=== PATIENT | male | born 1950 | race Caucasian/White ===

== ENCOUNTER 2021-07-13 14:53 | Emergency (ER) | payer OTHER, SELFPAY ==
[2021-07-13 15:00] VITALS: BP 108/62; PULSE 99; RESP 16; TEMP 36.3; O2SAT 97
--- NOTE | 2021-07-13 15:15 | DI.RAD_ITS ---
Exam(s) XR RIBS LT W PA LAT CHEST CLINICAL HISTORY L hilary-lat pain after fall. COMPARISON: No exams were available for comparison TECHNIQUE:: PA and lateral views of the chest and four views of the left ribs were performed. FINDINGS: LUNGS: Clear. No pleural abnormality seen. HEART: Normal. MEDIASTINUM: Normal. BONES: Old fracture deformities of the left 8th and 10th ribs. No acute displaced rib fracture is se en. No compression fractures are seen in the thoracic spine. Flowing osteophytes. No bony destruct twyla lesion is seen. OTHER FINDINGS: Surgical clips in region of stomach and left upper quadrant.. IMPRESSION: 1. Old left 8th and 9th rib fractures. No acute fractures.. 2. No acute pulmonary findings.
--- NOTE | 2021-07-13 15:20 | ED.GENADUL_ITS ---
Discharge Plan Disposition Patient Disposition: HOME Condition: Improving Discharge Details Clinical Impression: Contusion of rib on left side Primary Care Provider: Unknown,Unknown ED Provider: Mehdi Melendez Home Meds and New Rx's Prescriptions: Continued albuterol sulfate 90 mcg/actuation Hfa Aerosol Inhaler 1 puff INHALATION TID PRN Eliquis 5 mg Tablet 5 mg PO BID metformin 1,000 mg Tablet 1,000 mg PO BID acetaminophen 500 mg Tablet 500 mg PO BID PRN lisinopril 10 mg Tablet 10 mg PO DAILY escitalopram oxalate 20 mg Tablet 20 mg PO DAILY dulaglutide 1.5 mg/0.5 mL Pen Injector 1.5 mg SUBCUT DIRECTED Rx Instructions: Q Discharge Instructions Instructions: Rib Contusion (ED) Additional Instructions: Your chest and rib x-rays revealed left lower rib fractures at the eighth and 10th level. These appear to be nonacute. Continue your routine medications including Tylenol as needed for pain. Return to the ER for any acute concerns. Medical Decision Making This is a 70-year-old male from local [facility]al [facility]. He states he tripped over his shoelaces caught and fell forward landing on his left shoulder and chest. He did not have a loss of consciousness. Denies head/neck/back pain. He presents for evaluation of left anterior chest wall pain. No extremity injury. Patient is anticoagulated for history of DVT. On my exam is area of injuries isolated to the left anterolateral chest wall. Patient referred for chest x-ray with rib views. This reveals nonacute eighth and 10th rib fractures. Discussed with patient and he is stable for discharge from the ER. HPI General Mode of arrival: ambulatory . Date/Time Provider Initiated Documentation: 07/13/21 14:54 . Limitations to Documentation: no limitations . Information obtained by: patient . History of Present Illness 70 year old M presents to the emergency department with the chief complaint of Trip and fall with resultant left chest wall pain, described as moderate, Quality is described as constant, and is localized to the chest and left. Patient reports no radiation. Patient started experiencing this hour(s) and it has been constant. No relieving factors improve symptom(s), Movement worsens symptoms . Patient notes denies cough, headaches, shortness of breath and syncope. Patient did receive the following treatments prior to arrival, none Related Data Home Medications Medication Instructions Recorded Confirmed acetaminophen 500 mg tablet 500 mg PO BID PRN 07/13/21 07/13/21 albuterol sulfate 90 mcg/actuation 1 puff inhalation TID PRN 07/13/21 07/13/21 aerosol inhaler apixaban 5 mg tablet (Eliquis) 5 mg PO BID 07/13/21 07/13/21 dulaglutide 1.5 mg/0.5 mL 1.5 mg subcut DIRECTED 07/13/21 07/13/21 subcutaneous pen injector escitalopram oxalate 20 mg tablet 20 mg PO DAILY 07/13/21 07/13/21 lisinopril 10 mg tablet 10 mg PO DAILY 07/13/21 07/13/21 metformin 1,000 mg tablet 1,000 mg PO BID 07/13/21 07/13/21 Allergies Allergy/AdvReac Type Severity Reaction Status Date / Time No Known Allergies Allergy Unverified 07/13/21 15:05 General Stated Complaint: Chest/Rib BERRY: 4 Review of Systems Narrative: No loss of consciousness. Denies headache. No neck or back pain. Left anterior chest pain that is worse with movement. Denies abdominal pain. PFSH All Active Problems (Updated 07/13/21 @ 16:13 by Mehdi Melendez MD) Contusion of rib on left side (Acute) Social History Smoking/Tobacco Use Status: Never Smoking risk assessment performed?: Yes Exam Narrative Exam Narrative: GEN: awake, alert, oriented 3. Pleasant, well groomed, interactive. HEAD: Normocephalic, atraumatic ENT: Mucous membranes moist, oropharynx unremarkable, External ear exam unremarkable EYES: PERRL, EOMI NECK: Full ROM, no RUSH, no menigismus CHEST/RESP: Left anterolateral chest wall tenderness to palpation below the nipple line, no crepitus, clear to auscultation bilateral, no wheeze/rhonchi/rales CARDIOVASCULAR: RRR, no murmur, rub adan. 2+ Rad pulse bilateral ABDOMEN: Soft, nontender, no mass. +Bowel sounds EXT: Full ROM, no edema, no rash Neuro: Grossly normal neurologic exam, conversant, interactive. Psych: Speech fluent, thoughts congruent, affect normal Course Vital Signs Vital signs: Vital Signs Temperature 36.3 C L 07/13/21 15:00 Pulse 99 H 07/13/21 15:00 Respiratory Rate 16 07/13/21 15:00 Blood Pressure 108/62 07/13/21 15:00 Pulse Oximetry 97 07/13/21 15:00 Temperature 36.3 C L 07/13/21 15:00 Temperature Source Skin 07/13/21 15:00 Pulse 99 H 07/13/21 15:00 Respiratory Rate 16 07/13/21 15:00 Respiratory Effort 07/13/21 15:11 Respiratory Depth Shallow 07/13/21 15:11 Respiratory Pattern Normal 07/13/21 15:11 Blood Pressure 108/62 07/13/21 15:00 Blood Pressure Position Sitting 07/13/21 15:00 Pulse Oximetry 97 07/13/21 15:00 Oxygen Delivery Method Room Air 07/13/21 15:00 Oxygen Flow Rate 0 07/13/21 15:00 Pain Level 4 07/13/21 15:11 Comment denies ice or heat to injured area 07/13/21 15:00
--- NOTE | 2021-07-13 16:12 | DI.VRAD_ITS ---
PROCEDURE INFORMATION: Exam: XR Left Ribs Exam date and time: 07/13/2021 3:51 PM Age: 70 years old Clinical indication: Other: L- anterior lat pain after fall TECHNIQUE: Imaging protocol: XR Left ribs. Views: 2 views. COMPARISON: No relevant prior studies available. FINDINGS: Bones/joints: There appears to be a nonacute lower left rib fractures at the T8 and 10th rib level. Intraperitoneal space: There are surgical clips in the left upper quadrant. It appears the patient is status post anterior abdominal wall hernia repair. Soft tissues: See Intraperitoneal space finding. IMPRESSION: Apparent nonacute 8th and 10th rib fractures. No definite acute fracture seen. PROCEDURE INFORMATION: Exam: XR Chest Exam date and time: 07/13/2021 3:51 PM Age: 70 years old Clinical indication: Other: L- anterior lat pain after fall TECHNIQUE: Imaging protocol: XR of the chest. Views: 2 views. COMPARISON: No relevant prior studies available. FINDINGS: Lungs: Unremarkable. No consolidation. Pleural spaces: Unremarkable. No pleural effusion. No pneumothorax. Heart/Mediastinum: Unremarkable. No cardiomegaly. Bones/joints: Unremarkable. IMPRESSION: No evidence for acute abnormality in the chest. Dictated and Authenticated by: Betty Pineda MD. Ordering:TERESA Harding MD
== END 2021-07-13 16:28 | disposition home or self-care (01) ==
PROVIDERS: Emergency Provider Emergency Medicine
DX: S20.212A Contusion of left front wall of thorax, initial encounter (principal); W01.0XXA Fall on same level from slipping, tripping and stumbling without subsequent striking against object, initial encounter
CPT/HCPCS: 99283; 71046; 71100

== ENCOUNTER 2024-06-24 11:30 | Observation (INO) | payer OTHER, SELFPAY ==
[2024-06-24] VITALS (125 sets, daily range): BP systolic 84–139; BP diastolic 50–74; PULSE 101–136; RESP 11–27; TEMP 36.8–38.3; O2SAT 94–100
--- NOTE | 2024-06-24 11:30 | RT.EKG_ITS ---
APPROVED REPORT Exam: Resting ECG Reason for Exam: sob Patient Location: E HR:115 bpm ECG Measurements Heart Rate 115 AXIS HI 132 P 0 QRSd 76 QRS 0 QT 314 T 23 QTc 434 Conclusion Sinus tachycardia...rate> 99 No Occlusion HI
--- NOTE | 2024-06-24 11:30 | DI.CT_ITS ---
Exam(s) CT HEAD WO EXAM: CT HEAD WO CLINICAL HISTORY: head strike. TECHNIQUE: Imaging Protocol: Axial computed tomography images with coronal and sagittal reformatted images were created and reviewed COMPARISON: No exams were available for comparison FINDINGS: Ventricles and Extra axial spaces: Normal in size and morphology for the patient's age. Hemorrhage: None. Cerebral parenchyma: No evidence of acute infarct or mass. Mild atrophy. Midline shift: None. Brainstem/Cerebellum: Normal. Bones: No skull fracture fixation plate in the anterior wall the Sherman maxillary sinus and superior lef t orbit. Old nasal fractures. No acute fractures are identified. Visualized Paranasal sinuses:Minimal ethmoid and maxillary sinus mucosal thickening. Mastoids: Clear. Soft Tissues: Calcification in the high left scalp. ORBITS: Unremarkable. PITUITARY: Not enlarged. IMPRESSION: No acute intracranial process. RADIATION DOSE DELIVERED: Total DLP DATA REPOSITORY: All CT scans at this facility are submitted to the National Radiology Data Registry (NRDR) Dose Index Registry (DIR) with the [employer] (ACR). RADIATION OPTIMIZATION: All CT scans at this facility use at least one of these dose optimization te chniques: automated exposure control; mA and/or kV adjustment per patient size (includes targeted exa ms where dose is matched to clinical indication); or iterative reconstruction.
--- NOTE | 2024-06-24 11:31 | W.ED.GENAD ---
Discharge Plan Discharge Details Chief Complaint: [id number] Clinical Impression: Symptomatic anemia, Acute blood loss anemia (ABLA) Primary Care Provider: Unknown,Unknown ED Provider: José Manuel Godinez [place] Meds and New Rx's Prescriptions: No Action naproxen 500 mg tablet 500 mg PO BID PRN metformin 1,000 mg Tablet 1,000 mg PO BID acetaminophen 500 mg Tablet 500 mg PO BID PRN lisinopril 10 mg Tablet 10 mg PO DAILY escitalopram oxalate 20 mg Tablet 20 mg PO DAILY dulaglutide 1.5 mg/0.5 mL Pen Injector 1.5 mg SUBCUT DIRECTED Rx Instructions: Q HPI General Date/Time Provider Initiated Documentation: 06/24/24 11:31. HPI Narrative: MDM This is a pale tachycardic initially normotensive 73-year-old male prior history of GI bleed with likely recurrent GI bleed in setting of anemia and syncope for which patient require hospitalization. Patient has been taking ibuprofen 600 mg twice a day. I am not concerned for variceal bleed so we will defer octreotide. Patient is not cirrhotic so we will defer ceftriaxone. After written consent to transfuse patient 2 L as his hemoglobin went from 7.9-6.9 following approximate 1 L of IV fluids. I spoke with Dr. Calderon from general surgery to make him aware. Patient does not require an emergent upper endoscopy. His CT scan does show that he has small amount of high density material at the GE junction which could represent upper GI bleed. His CT chest was negative for PE. He had no signs of intracranial hemorrhage on CT scan. He was initially hyperkalemic with serum potassium of 5.7 which improved with treatment using 5 units IV insulin, D10 bolus, and 2 g calcium gluconate. Patient is persistently tachycardic which I suspect is secondary to volume loss. Considered sepsis however the absence of fevers I did not treat empirically with IV antibiotics. No chest pain to suggest pneumonia and no cough. Patient does have diverticular disease in his abdomen but no signs of diverticulitis. No URI symptoms to suggest COVID or influenza. Concerning the patient's left index finger spider bite I see no signs of infection which would benefit from antibiotics. I spoke with Dr. Regalado who graciously agreed to accept the patient for hospitalization. No indication for CT cervical spine based on Nexus criteria. Per Nexus criteria, cervical CT not obtained. The patient had no c-spine midline tenderness, no evidence of intoxication, was AAOx3, had no focal neurological deficits, and no painful distracting injuries. HPI This is a 73-year-old male arrived emergency department in police custody from the skilled nursing in setting of syncopal episode. Patient reports that he has had black stools for the past several days. He notes that he remotely had a colonoscopy and endoscopy for a GI bleed but he cannot recall when or where this occurred. He said that he was previously on apixaban and warfarin in setting of atrial fibrillation but that he is no longer taking these medications. He denies chest pain shortness of breath. He does not routinely drink alcohol. He had a spider bite several weeks ago and has been taking 600 mg ibuprofen twice a day. The spider bite was on his left index finger. He denies routine tobacco, ethanol, and illicits. He got up today and felt lightheaded. Subsequently he tried to grab the top bunk but fell down and struck the backside of his head. He lost consciousness. He did not have any tongue biting. He denies shortness of breath chest pain nausea vomiting fevers and chills. He is not having any abdominal pain. Exam General: Pale-appearing in no acute distress speaking in complete sentences. Head: Normocephalic, atraumatic. Eye: Extraocular eye movements intact. No conjunctival injection. No scleral icterus. Ear, nose, mouth, throat: Grossly normal inspection. Normal voice, handling secretions normally. Neck: Trachea midline. No midline cervical spinal tenderness. Cardiovascular: Well-perfused distal extremities. Rapid regular rate Respiratory: Nonlabored respiration. Clear lungs bilaterally. Gastrointestinal: Nondistended abdomen. Soft. Nontender.. Rectal: No gross blood. No melena. External hemorrhoid not bleeding. Musculoskeletal: No edema. Moving all 4 extremities spontaneously. Left hand no signs of infection. No obvious signs of any recent spider bite to left hand which is warm well-perfused with intact sensation and motor function grossly radial, median, ulnar nerve distributions. Skin: Normal for age and race, grossly normal temperature and turgor. No acute rash. Neurologic: Alert and appropriate, no apparent acute deficits. GCS 15. Psychiatric: Mood and manner are appropriate. Grooming and personal hygiene are appropriate. Related Data Home Medications ?Medication ?Instructions ?Recorded ?Confirmed acetaminophen 500 mg tablet 500 mg PO BID PRN 07/13/21 06/24/24 dulaglutide 1.5 mg/0.5 mL 1.5 mg subcut DIRECTED 07/13/21 06/24/24 subcutaneous pen injector escitalopram oxalate 20 mg tablet 20 mg PO DAILY 07/13/21 06/24/24 lisinopril 10 mg tablet 10 mg PO DAILY 07/13/21 06/24/24 metformin 1,000 mg tablet 1,000 mg PO BID 07/13/21 06/24/24 naproxen 500 mg tablet 500 mg PO BID PRN 06/24/24 06/24/24 Allergies Allergy/AdvReac Type Severity Reaction Status Date / Time No Known Allergies Allergy Verified 06/24/24 11:39 General BERRY: 4 Medical Decision Making Quality:SDOH Health Related Social Needs: No Data to Display Critical Care Time Critical Care Time Critical Care Time: Yes Total Critical Care Time: 60 Attestation: Acute symptomatic anemia PFSH All Active Problems (Updated 06/24/24 @ 16:11 by Clement Regalado MD) History of DVT (deep vein thrombosis) (Acute) Elevated MCV (Acute) Hypomagnesemia (Acute) Elevated BUN (Acute) GIB (gastrointestinal bleeding) (Chronic) Tachycardia (Acute) Acute blood loss anemia (ABLA) (Acute) Symptomatic anemia (Acute) Social History Smoking/Tobacco Use Status: Never Smoking risk assessment performed?: Yes Alcohol Intake: current Substance use type: does not use
[2024-06-24] MEDS: Normal Saline 500 ML 1000 ML IV (11:35)
[2024-06-24 11:47] LABS: Absolute Eosinophil Count 0.19 10^3/uL (0.0-0.7); Absolute Lymphocyte Count 4.73 10^3/uL (1.2-3.4); Basophils % 0.6 %; Eosinophils % 1.1 %; HCT 23.7 % (40.0-50.0); HGB 7.9 g/dL (13.5-17.5); Immature Grans % 0.6 %; Lymphocytes % 27.8 %; MCHC 33.3 % (32.0-36.0); MCV 96 fL (80-95); MPV 10.7 fL (8.0-11.0); Monocytes % 4.6 %; Neutrophils % 65.3 %; Platelet Count 527 10^3/uL (130-400); RBC 2.47 10^6/uL (4.36-5.78); RDW 14.4 % (11.8-14.1); RDW-SD 49.9 fL; WBC 17.03 10^3/uL (4.4-10.8)
[2024-06-24 11:49] LABS: Absolute Monocyte Count 0.78 10^3/uL (0.1-0.8); Absolute Neutrophil Count 11.12 10^3/uL (1.2-6.7)
[2024-06-24 12:04] LABS: ALT 18 U/L (16-63); AST 16 U/L (15-37); Albumin 2.9 g/dL (3.4-5.0); Alkaline Phosphatase 47 U/L (46-116); Anion Gap 7.1 mmol/L (3-11); BUN 72 mg/dL (7-18); Bilirubin, Total 0.4 mg/dL (0.2-1.0); CO2 21.9 mmol/L (21.0-32.0); CREATININE 1.5 mg/dL (0.70-1.30); Calcium 8.6 mg/dL (8.5-10.1); Chloride 107 mmol/L (98-107); Creatine Kinase 45 U/L (39-308); Estimated GFR 48.85 (mL/min/1.73m2); Glucose 141 mg/dL (74-106); Magnesium 1.6 mg/dL (1.8-2.4); Sodium 136 mmol/L (136-145); Total Protein 6.4 g/dL (6.4-8.2); Troponin I 5 ng/L (<or=76)
[2024-06-24 12:09] LABS: Potassium 5.7 mmol/L (3.5-5.1)
[2024-06-24 12:14] LABS: D-Dimer 1643 ng/mlFEU (<500)
[2024-06-24 12:20] LABS: Diff Comment Diff Reviewed; Hypochromasia 1+
[2024-06-24] MEDS: Calcium Gluconate 4.65 MEQ/10 ML VIAL 4.65 MG IVP (12:46)
[2024-06-24] MEDS: Insulin REGULAR-Human 100 UNITS/ML UNIT IV (12:47)
[2024-06-24] MEDS: DEXTROSE 10%-WATER 500 ML 250 ML IV (12:48)
[2024-06-24 13:20] LABS: Troponin I 5 ng/L (<or=76)
[2024-06-24] MEDS: Magnesium Oxide 400 MG TAB 800 MG PO (13:22)
--- NOTE | 2024-06-24 13:25 | DI.VRAD_ITS ---
PROCEDURE INFORMATION: Exam: CT Head Without Contrast Exam date and time: 06/24/2024 12:26 PM Age: 73 years old Clinical indication: Injury or trauma; Fall and other: Head strike; Blunt trauma (contusions or hematomas); Consciousness not specified TECHNIQUE: Imaging protocol: Computed tomography of the head without contrast. Radiation optimization: All CT scans at this facility use at least one of these dose optimization techniques: automated exposure control; mA and/or kV adjustment per patient size (includes targeted exams where dose is matched to clinical indication); or iterative reconstruction. COMPARISON: No relevant prior studies available. FINDINGS: Brain: There is mild diffuse cortical atrophy. There is no current acute infarct or hemorrhage identified. There is no midline shift or mass lesion. Posterior fossa: No acute focal lesion of the brainstem or cerebellum. Orbits: The globes and retro-orbital soft tissues are normal. CSF spaces: There are no subdural or epidural hematomas. There is no subarachnoid hemorrhage. The basilar cisterns are clear. Cerebral ventricles: The ventricles are unremarkable. Paranasal sinuses: There is minimal mucoperiosteal thickening of the right and left ethmoid air cells. There is minimal mucoperiosteal thickening of the right and left maxillary sinuses. The sphenoid and frontal air cells are clear. Mastoid air cells: The mastoid air cells are clear. Bones: There has been prior surgical repair of the anterior wall of the left maxillary sinus. There has been prior surgical repair of the superolateral margin of the left bony orbit. There are old nasal bone fractures. No acute process identified. Soft tissues: There is minimal scalp swelling over the high posterior right parietal region. No underlying fracture identified. There is a 4 mm round calcification in the subcutaneous tissues overlying the high right parietal region. This likely represents dystrophic calcification from prior injury ,inflammation or infection. No acute process is identified. IMPRESSION: 1. Mild atrophy but no current acute infarct, hemorrhage or mass lesion identified. 2. Minimal scalp swelling over the high posterior right parietal region but no underlying fracture identified. 3. Old surgical fixations of the anterior wall of the left maxillary sinus and the superolateral margin of the left bony orbit. 4. Deformity of the nasal bones consistent with prior fractures. Dictated and Authenticated by: Davi Deal MD. Orderin Gretchen Georges MD
--- NOTE | 2024-06-24 14:00 | RT.EKG_ITS ---
APPROVED REPORT Exam: Resting ECG Reason for Exam: syncope Patient Location: E HR:116 bpm ECG Measurements Heart Rate 116 AXIS [place] [id number] P [id number] QRSd 81 QRS 25 QT 368 T 81 QTc 512 Conclusion Junctional tachycardia...absent P waves, rapid V-rate Low voltage, extremity leads...all extremity leads <0.5mV ST elevation, consider inferior injury...ST >0.08mV, II III aVF Prolonged QT interval...QTc >500mS No Occlusion [place]
[2024-06-24] MEDS: Normal Saline - Diluent 50 ML VIAL IJ (14:08)
[2024-06-24] MEDS: Omnipaque 350 MG/ML 100 ML BTL IJ (14:09)
--- NOTE | 2024-06-24 14:11 | DI.CT_ITS ---
Exam(s) CT CHEST PE ABD PELVIS W EXAM: CT CHEST PE ABD PELVIS W CLINICAL HISTORY: Positive dimer syncope. TECHNIQUE: Imaging Protocol: Axial computed tomography images with coronal and sagittal reformatted images were created and reviewed. Computer aided detection (CAD) was utilized. CONTRAST MATERIAL: Intravenous: Omnipaque 350 Contrast volume:100 ml Oral: no COMPARISON: CR,XR XR RIBS LT W PA LAT CHEST from 07/13/2021 FINDINGS: CHEST: Pulmonary parenchyma: No consolidation. No dominant measurable mass. Tracheobronchial tree: No bronchiectasis. No mucous plugging.No bronchial wall thickening. Pleura: No effusion or pneumothorax. Mediastinum: Within normal limits. Pulmonary arteries: No visible emboli. Cardiovascular: The heart is mildly enlarged. Coronary artery calcifications are present. No perica rdial effusion. Thoracic aorta non-dilated. Bones: Flowing endplate osteophytes in the thoracic spine. Old left rib fractures. No lytic or jie tic lesions.No compression fractures. Soft tissues: Unremarkable. ABDOMEN and PELVIS: Liver: Normal density. No suspicious mass. Gallbladder and biliary tract: Cholecystectomy. No biliary dilatation. Pancreas: Normal density, no abnormal calcifications or inflammatory process. Spleen: Surgical clips left upper quadrant. Regenerative splenic nodule. Kidneys: Normal size, contour and axis. No radiodense stones. No obstructive uropathy. No suspicious masses seen. Adrenal glands: No masses seen. Aorta: Abdominal portion non-dilated. Atherosclerotic changes. Lymph nodes: Within normal limits. Soft tissues: Anterior abdominal wall hernia repair. Small fat containing bilateral inguinal hernias . Bladder: Distended but unremarkable. Bowel: Stomach mildly distended with fluid. High-density material seen in the dependent portion of t he stomach, presumably ingested material. It appears too dense to represent hemorrhage. Small focus of rounded high density in the distal esophagus which could represent a calcification. There is wal l thickening of the descending duodenum which could indicate duodenitis. No evidence of perforation or visible ulcer. No obstruction . Mild sigmoid diverticulosis . Normal appendix. Moderate quantit y of stool. Peritoneal cavity: No ascites. No focal collection. No mesenteric inflammatory response. No free ai r. Bones: Degenerative changes throughout the lumbar spine. Reproductive organs: Enlarged prostate. IMPRESSION: No acute abnormality in the chest. Wall thickening and mild surrounding inflammation consistent with duodenitis. RADIATION DOSE DELIVERED: Total DLP DATA REPOSITORY: All CT scans at this facility are submitted to the National Radiology Data Registry (NRDR) Dose Index Registry (DIR) with the [employer] (ACR). RADIATION OPTIMIZATION: All CT scans at this facility use at least one of these dose optimization te chniques: automated exposure control; mA and/or kV adjustment per patient size (includes targeted exa ms where dose is matched to clinical indication); or iterative reconstruction.
[2024-06-24] MEDS: Pantoprazole 40 MG VIAL 80 MG IVP (14:20)
[2024-06-24 14:40] LABS: HCT 21.4 % (40.0-50.0)
[2024-06-24 14:43] LABS: Anion Gap 8.7 mmol/L (3-11); BUN 75 mg/dL (7-18); CO2 19.3 mmol/L (21.0-32.0); CREATININE 1.4 mg/dL (0.70-1.30); Calcium 8.2 mg/dL (8.5-10.1); Chloride 107 mmol/L (98-107); Estimated GFR 53.07 (mL/min/1.73m2); Glucose 139 mg/dL (74-106); Potassium 4.9 mmol/L (3.5-5.1); Sodium 135 mmol/L (136-145)
[2024-06-24 14:46] LABS: HGB 6.9 g/dL (13.5-17.5)
[2024-06-24 14:48] LABS: Bilirubin Negative (Negative); Blood Negative (Negative); Clarity Clear (Clear); Glucose Negative (Negative); Ketones Trace mg/dL (Negative); Leukocyte Esterase Negative (Negative); Nitrite Negative (Negative); Specific Gravity <= 1.005 (1.005-1.025); Urobilinogen 0.2 mg/dL (Up to 0.2); pH 5.5 (5-8)
[2024-06-24 15:05] LABS: Troponin I 6 ng/L (<or=76)
--- NOTE | 2024-06-24 15:11 | DI.VRAD_ITS ---
Addendum created by Davi Deal MD on 06/24/2024 3:12:07 PM EDT: Addendum: Results are discussed with the ordering physician, Dr. Umaña, on June 24, 2024 at 12:00 p.m. PST. Initial report created on 06/24/2024 3:11:34 PM EDT: PROCEDURE INFORMATION: Exam: CTA Chest With Contrast Exam date and time: 06/24/2024 1:55 PM Age: 73 years old Clinical indication: Other: Positive dimer, syncope, gi bleed, anemia TECHNIQUE: Imaging protocol: Computed tomographic angiography of the chest with contrast. Exam focused on the arteries. 3D rendering (Not supervised by radiologist): MIP and/or 3D reconstructed images were created by the technologist. Radiation optimization: All CT scans at this facility use at least one of these dose optimization techniques: automated exposure control; mA and/or kV adjustment per patient size (includes targeted exams where dose is matched to clinical indication); or iterative reconstruction. Contrast material: OMNI 350; Contrast volume: 100 ml; Contrast route: INTRAVENOUS (IV); COMPARISON: CR XR RIBS LT W PA LAT CHEST 07/13/2021 3:51 PM FINDINGS: Pulmonary arteries: No filling defects within the pulmonary arteries identified. There are no pulmonary emboli. The main pulmonary artery measures 2.3 cm. Aorta: The ascending thoracic aorta measures 3.3 cm. The descending thoracic aorta measures 2.3 cm. No thoracic aneurysm or dissection. Lungs: The lung martins are clear of acute infiltrate. No consolidation or atelectasis. Pleural spaces: No effusions or pneumothoraces. Heart: The heart is mildly enlarged. There is coronary artery calcification. Lymph nodes: No abnormal mediastinal adenopathy. The largest precarinal node measures 6 x 6 mm. Bones/joints: There are mild degenerative changes of the thoracic spine without acute bony change. Soft tissues: No abnormal soft tissue lesions of the chest wall. Thyroid: The thyroid gland is mildly enlarged. There is a 5 mm coarse calcification in the inferior right thyroid lobe. IMPRESSION: 1. No pulmonary emboli. 2. No thoracic aneurysm or dissection. 3. No acute pulmonary infiltrate effusion or pneumothorax. 4. No abnormal mediastinal adenopathy or hilar mass. 5. The heart is borderline enlarged. There is coronary artery calcification. PROCEDURE INFORMATION: Exam: CT Abdomen And Pelvis With Contrast Exam date and time: 06/24/2024 1:55 PM Age: 73 years old Clinical indication: Other: Positive dimer, syncope, gi bleed, anemia TECHNIQUE: Imaging protocol: Computed tomography of the abdomen and pelvis with contrast. Radiation optimization: All CT scans at this facility use at least one of these dose optimization techniques: automated exposure control; mA and/or kV adjustment per patient size (includes targeted exams where dose is matched to clinical indication); or iterative reconstruction. COMPARISON: CR XR RIBS LT W PA LAT CHEST 07/13/2021 3:51 PM FINDINGS: Lungs: The lung bases are clear of acute infiltrate. Heart: The heart is mildly enlarged. There is coronary artery calcification. Liver: The liver is intact. There is a subcentimeter cyst in the superior left hepatic lobe. The portal vein is patent. Gallbladder and biliary ducts: There has been a prior cholecystectomy. No abnormal biliary dilatation. Pancreas: The pancreas shows no mass or inflammatory process. 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 There is a 2.9 cm residual splenule in the splenic bed. Adrenal glands: The adrenal glands are unremarkable. Kidneys and ureters: The kidneys are unobstructed. There are no calculi. The left kidney demonstrates a subcentimeter low-density lesion in the superior cortex that is too small to accurately characterize but is likely a cyst. Stomach and bowel: There is a focus of high density in the distal esophagus at the gastroesophageal junction. There is also a small amount of high density material within the fundus of the stomach and in the duodenum. There is mild thickening of the 2nd portion of the duodenal which may represent a duodenitis. It is undetermined whether this represents a potential focus of bleeding or residual ingested medication. Further evaluation by upper endoscopy is recommended. No small bowel obstruction. There are scattered diverticula of the sigmoid colon without diverticulitis. Appendix: The appendix is visualized and is normal. Intraperitoneal space: No free air or free fluid. Vasculature: The abdominal aorta is of normal caliber. No aneurysm or dissection. No significant stenoses at the origins of the celiac or superior mesenteric arteries. Lymph nodes: No abnormal para-aortic adenopathy. Urinary bladder: The bladder shows no filling defects. Reproductive: The prostate gland measures 4.9 cm AP x 5.4 cm transverse. Bones/joints: There are mild diffuse degenerative changes throughout the lumbar spine without acute bony change. Soft tissues: The patient has had prior anterior abdominal wall surgery which may represent prior hernia repair. No acute process is identified. IMPRESSION: 1. 1. Small amount of high density material at the gastroesophageal junction, the fundus of the stomach and in the duodenal which could potentially represent upper GI bleeding as well as ingested medication. There is mild edema of the duodenum and further evaluation by upper endoscopy may be helpful. 2. Diverticulae of the sigmoid colon but no present diverticulitis. 3. No free air or free fluid. 4. Prior anterior abdominal wall surgery and prior splenectomy with residual splenule. Dictated and Authenticated by: Davi Deal MD. Orderin Gretchen Georges MD
--- NOTE | 2024-06-24 15:56 | W.SURGCON ---
Date of service: 06/24/24 Time of Service: 15:55 Assessment and Plan Assessment and plan (1) Acute blood loss anemia (ABLA): Status: Acute Assessment and plan: 73-year-old man with GI bleeding. Source likely upper GI / foregut by the history and presentation. Peptic ulcer disease the most-likely on the DDx. It is unclear what baseline hemoglobin is. Considering patient is incarcerated, the DDx includes traumatic intra-luminal gut injury from ingesting something unusual. Hemoconcentraed/dehydrated on presenting labwork . . . I suspect repeat labwork is likely the presenting value rather than rapid, ongoing bleeding. Recommendations are: # Admission to the hospitalist service: medical management to include maximum-dose PPI therapy, sucralfate, somatostatin, etc. # Serial hemoglobin checks every 6-8 hours, until hemoglobin has stabilized # Crossmatch, check coagulation factors/antiplatelet therapies and correct them as needed - hold/reverse any anticoagulation(None suspected in this case) Platelet count is high(from concentration)l and reportedly he does not have antiplatelet therapy on board. # Transfuse as needed - for hemoglobin target greater than 7 unless - symptomatic or hemodynamically unstable. # Minimal IV fluid resuscitation - permissive hypotension - treat hypovolemia with blood products. # Typically, urgent EGD within the next 24-36 hours to assess the foregut can be considered. # Continued hemorrhage, must be considered for transfer and IR angioembolization efforts. (Not currently an issue) # Emergency surgery for this is a last resort for extreme, life-saving measures only. (Not currently an issue) # Surgery will follow along until hemoglobin stabilizes and bleeding subsides. Will consider EGD tomorrow or Wednesday. History of Present Illness Narrative: By report, patient developed dark stools about 2 or 3 days ago. This is new. Not on AC. He is a prisoner and reportedly passed out and was then brought in for evaluation. Hgb found to be in the 7-range and after some fluids went down to 6.9 PFSH All Active Problems (Updated 06/24/24 @ 15:54 by José Manuel Godinez MD) Acute blood loss anemia (ABLA) (Acute) Symptomatic anemia (Acute) Social History Smoking/Tobacco Use Status: Never Smoking risk assessment performed?: Yes Alcohol Intake: current Substance use type: does not use Results Last Vital Signs Temp 98.4 F 06/24/24 15:21 Pulse 118 H 06/24/24 15:21 Resp 17 06/24/24 15:21 BP 92/55 L 06/24/24 15:21 Pulse Ox 97 06/24/24 15:21 Labs 06/24/24 14:34 06/24/24 14:08 Labs: Laboratory Results - last 24 hr 06/24/24 06/24/24 06/24/24 11:39 12:54 13:13 WBC 17.03 H RBC 2.47 L Hgb 7.9 L Hct 23.7 L MCV 96 H MCH 32.0 MCHC 33.3 RDW 14.4 H Plt Count 527 H MPV 10.7 Immature Gran % 0.6 Neutrophils % 65.3 Lymphocytes % 27.8 Monocytes % 4.6 Eosinophils % 1.1 Basophils % 0.6 Nucleated RBC % 0.0 Absolute Neutrophils 11.12 H Absolute Lymphocytes 4.73 H Absolute Monocytes 0.78 Absolute Eosinophils 0.19 Absolute Basophils 0.10 RBC Morphology See Below Hypochromasia 1+ D-Dimer 1643 H Sodium 136 Potassium 5.7 H Chloride 107 Carbon Dioxide 21.9 Anion Gap 7.1 BUN 72 H Creatinine 1.5 H Est GFR (CKD-EPI 2020) 48.85 Glucose 141 H Calcium 8.6 Magnesium 1.6 L Total Bilirubin 0.4 AST 16 ALT 18 Alkaline Phosphatase 47 Creatine Kinase 45 Troponin I 5 5 Total Protein 6.4 Albumin 2.9 L Urine Color Urine Clarity Urine pH Ur Specific [place] Urine Protein Urine Ketones Urine Blood Urine Nitrite Urine Bilirubin Urine Urobilinogen Ur Leukocyte Esterase Urine Glucose ABO/Rh O Positive Blood Type Recheck O Positive Antibody Screen NEGATIVE Crossmatch See Detail 06/24/24 06/24/24 06/24/24 14:08 14:22 14:34 WBC RBC Hgb 6.9 L* Hct 21.4 L MCV MCH MCHC RDW Plt Count MPV Immature Gran % Neutrophils % Lymphocytes % Monocytes % Eosinophils % Basophils % Nucleated RBC % Absolute Neutrophils Absolute Lymphocytes Absolute Monocytes Absolute Eosinophils Absolute Basophils RBC Morphology Hypochromasia D-Dimer Sodium 135 L Potassium 4.9 Chloride 107 Carbon Dioxide 19.3 L Anion Gap 8.7 BUN 75 H Creatinine 1.4 H Est GFR (CKD-EPI 2020) 53.07 Glucose 139 H Calcium 8.2 L Magnesium Total Bilirubin AST ALT Alkaline Phosphatase Creatine Kinase Troponin I 6 Total Protein Albumin Urine Color Yellow Urine Clarity Clear Urine pH 5.5 Ur Specific [place] <= 1.005 Urine Protein Negative Urine Ketones Trace H Urine Blood Negative Urine Nitrite Negative Urine Bilirubin Negative Urine Urobilinogen 0.2 Ur Leukocyte Esterase Negative Urine Glucose Negative ABO/Rh Blood Type Recheck Antibody Screen Crossmatch
--- NOTE | 2024-06-24 16:02 | HPE_ITS ---
Date of service: 06/24/24 Time of Service: 16:02 Assessment and Plan Assessment and plan (1) Symptomatic anemia: Status: Acute Assessment and plan: pt is getting 2 units prbc in ed. Recheck cbc in am. Monitor vitals. Will place pt in the ICU (2) Acute blood loss anemia (ABLA): Status: Acute Assessment and plan: as above and the addition of protonix 40mg po bid (3) Tachycardia: Status: Acute Assessment and plan: as above (4) GIB (gastrointestinal bleeding): Status: Chronic Assessment and plan: Consult to GS placed per discussion with ED. Add hpylori and hemoccult check stool. (5) Elevated BUN: Status: Acute Assessment and plan: Elevated Bun/Cr ratio most likely 2/2 upper GIB. (6) Hypomagnesemia: Status: Acute Assessment and plan: replace (7) Elevated MCV: Status: Acute Assessment and plan: check b12/folate/fe/tibc. Concern for mixed disorder (8) History of DVT (deep vein thrombosis): Status: Acute Assessment and plan: scd currently 2/2 concern for bleeding. Pt would benefit from evaluation of hypercoagulable status History of Present Illness History of Present Illness Chief Complaint: syncope Narrative: This is a 73-year-old gentleman who is currently at one of the [facility] half-way system presents with an episode of syncope. Patient states he was getting out of his bunk bed became lightheaded and the next he was on the floor. Was brought into the ED for further evaluation and treatment. While he was in the ED complained that he had been having black stools and subsequent workup was indicative of anemia. The patient did have an elevation in his BUN and creatinine ratio as well. No Hemoccult checks were done in the ED. Patient was treated with Protonix and because of hyperkalemia was also given IV fluids and a small dose of insulin. Per my discussion with the patient, he states he did get a colonoscopy in the past but does not remember the results for the reasons. Patient states he thinks he might of had polyps. Patient does endorse abdominal pain and has been taking NSAIDs. The pain does not significantly get better or worse if he is eating or if he is hungry. Per my discussion with the ED physician, general surgery is aware but is not going to intervene on an urgent or emergent basis. Of note, the patient also has a history of 2 DVTs for which she was being treated with Coumadin and then Eliquis but neither 1 of these are currently being used. It is unknown whether or not these are provoked DVTs and he is not on this medication anymore. He also carries a medical diagnosis of anemia low magnesium elevated MCV tachycardia and hypotension. Review of Systems All systems reviewed & are unremarkable except as noted in HPI and below PFSH All Active Problems (Updated 06/24/24 @ 16:11 by Clement Regalado MD) History of DVT (deep vein thrombosis) (Acute) Elevated MCV (Acute) Hypomagnesemia (Acute) Elevated BUN (Acute) GIB (gastrointestinal bleeding) (Chronic) Tachycardia (Acute) Acute blood loss anemia (ABLA) (Acute) Symptomatic anemia (Acute) Social History Smoking/Tobacco Use Status: Never Smoking risk assessment performed?: Yes Alcohol Intake: current Substance use type: does not use Meds Allergies and Home Medications Allergies Allergy/AdvReac Type Severity Reaction Status Date / Time No Known Allergies Allergy Verified 06/24/24 11:39 Home Medications ?Medication ?Instructions ?Recorded ?Confirmed ?Type acetaminophen 500 mg tablet 500 mg PO BID PRN 07/13/21 06/24/24 History dulaglutide 1.5 mg/0.5 mL 1.5 mg subcut DIRECTED 07/13/21 06/24/24 History subcutaneous pen injector escitalopram oxalate 20 mg tablet 20 mg PO DAILY 07/13/21 06/24/24 History lisinopril 10 mg tablet 10 mg PO DAILY 07/13/21 06/24/24 History metformin 1,000 mg tablet 1,000 mg PO BID 07/13/21 06/24/24 History naproxen 500 mg tablet 500 mg PO BID PRN 06/24/24 06/24/24 History Exam Narrative Exam Narrative: HEENT: Normocephalic atraumatic mucous membranes moist oropharynx clear extract motions are intact Neck: No lymphadenopathy no JVD no thyromegaly Cardiovascular: Tachycardia but no murmur rubs or gallops Pulm: Clear to auscultation bilaterally good air exchange no accessory muscle use noted can speak in complete sentences Abdomen: Soft nontender nondistended bowel sounds active no hepatosplenomegaly is noted on exam Extremities: No sinus clubbing or edema bilaterally Neurologic: Cranial nerves II through XII intact as tested reflexes in upper lower extremity normal as tested Psych: Patient is alert oriented x 3 can give linear history Results Labs 06/24/24 14:34 06/24/24 14:08 Labs: Laboratory Results - last 24 hr 06/24/24 06/24/24 06/24/24 11:39 12:54 13:13 WBC 17.03 H RBC 2.47 L Hgb 7.9 L Hct 23.7 L MCV 96 H MCH 32.0 MCHC 33.3 RDW 14.4 H Plt Count 527 H MPV 10.7 Immature Gran % 0.6 Neutrophils % 65.3 Lymphocytes % 27.8 Monocytes % 4.6 Eosinophils % 1.1 Basophils % 0.6 Nucleated RBC % 0.0 Absolute Neutrophils 11.12 H Absolute Lymphocytes 4.73 H Absolute Monocytes 0.78 Absolute Eosinophils 0.19 Absolute Basophils 0.10 RBC Morphology See Below Hypochromasia 1+ D-Dimer 1643 H Sodium 136 Potassium 5.7 H Chloride 107 Carbon Dioxide 21.9 Anion Gap 7.1 BUN 72 H Creatinine 1.5 H Est GFR (CKD-EPI 2020) 48.85 Glucose 141 H Calcium 8.6 Magnesium 1.6 L Total Bilirubin 0.4 AST 16 ALT 18 Alkaline Phosphatase 47 Creatine Kinase 45 Troponin I 5 5 Total Protein 6.4 Albumin 2.9 L Urine Color Urine Clarity Urine pH Ur Specific [place] Urine Protein Urine Ketones Urine Blood Urine Nitrite Urine Bilirubin Urine Urobilinogen Ur Leukocyte Esterase Urine Glucose ABO/Rh O Positive Blood Type Recheck O Positive Antibody Screen NEGATIVE Crossmatch See Detail 06/24/24 06/24/24 06/24/24 14:08 14:22 14:34 WBC RBC Hgb 6.9 L* Hct 21.4 L MCV MCH MCHC RDW Plt Count MPV Immature Gran % Neutrophils % Lymphocytes % Monocytes % Eosinophils % Basophils % Nucleated RBC % Absolute Neutrophils Absolute Lymphocytes Absolute Monocytes Absolute Eosinophils Absolute Basophils RBC Morphology Hypochromasia D-Dimer Sodium 135 L Potassium 4.9 Chloride 107 Carbon Dioxide 19.3 L Anion Gap 8.7 BUN 75 H Creatinine 1.4 H Est GFR (CKD-EPI 2020) 53.07 Glucose 139 H Calcium 8.2 L Magnesium Total Bilirubin AST ALT Alkaline Phosphatase Creatine Kinase Troponin I 6 Total Protein Albumin Urine Color Yellow Urine Clarity Clear Urine pH 5.5 Ur Specific [place] <= 1.005 Urine Protein Negative Urine Ketones Trace H Urine Blood Negative Urine Nitrite Negative Urine Bilirubin Negative Urine Urobilinogen 0.2 Ur Leukocyte Esterase Negative Urine Glucose Negative ABO/Rh Blood Type Recheck Antibody Screen Crossmatch Last Vital Signs Temp 36.9 C 06/24/24 15:50 Pulse 120 H 06/24/24 15:50 Resp 14 06/24/24 15:50 BP 94/56 L 06/24/24 15:47 Pulse Ox 98 06/24/24 15:50 Time Spent Time spent with Patient: <40 minutes Time was spent: preparing to see the patient(eg.review tests), obtaining and/or reviewing separately otained hiistory, ordering medications,tests, procedures, referring, communicating with other health acute care certified nursing assistant, indepentently interpreting results, counseling the patient and care coordination
[2024-06-24 16:18] LABS: INR 1.1 (0.9-1.1); Prothrombin Time 11.1 sec (9.1-11.1)
[2024-06-24 17:07] LABS: Iron 68 ug/dL (65-175); Total Iron Binding Capacity 254 ug/dL (250-450); Transferrin Sat 27 % (20-55)
--- NOTE | 2024-06-24 17:12 | W.PC.ACHO ---
Registration Status: Primary Language: Preferred Language: ED Information & Data Chief Complaint [id number] 06/24/24 11:37 Chief Complaint [id number] 06/24/24 11:30 Triage Note Pt had witnessed syncopal 06/24/24 11:30 episode while holding onto bunk at long-term. Nurse and officer assisting when EMS arrived. Reported hit the back of his head. EMS reported he was hypotensive on arrival, no reported seizure activity, Reported he felt faint and weak when he came to. Reported he felt dizzy before this occurred. Denies CP or SOB, SHAIKH or vision changes. Most Recent Vital Signs Temperature 37.1 C 06/24/24 16:32 Temperature Source Oral 06/24/24 11:30 Pulse 116 H 06/24/24 16:32 Pulse 112 H 06/24/24 16:30 Respiratory Rate 17 06/24/24 16:32 Respiratory Effort Normal, Non-Labored 06/24/24 11:47 Respiratory Depth Normal 06/24/24 11:47 Respiratory Pattern Normal 06/24/24 11:47 Blood Pressure 103/55 L 06/24/24 16:32 Blood Pressure Mean 73 06/24/24 16:15 Blood Pressure Position Supine 06/24/24 11:30 Pulse Oximetry 99 06/24/24 16:32 Oxygen Delivery Method Room Air 06/24/24 16:32 Oxygen Flow Rate 0 06/24/24 16:32 Pain Level 0 06/24/24 11:30 Comment PRE BLOOD 06/24/24 15:01 Allergies No Known Allergies Allergy (Verified 06/24/24 11:39) Active Medications Generic Name Dose Route Start Last Admin Trade Name Benignoq PRN Reason Stop Dose Admin Dextrose/Water 500 mls @ 250 mls/hr 06/24/24 12:30 06/24/24 15:13 Dextrose 10%-Water IV Infused INFUSION KALYAN Infusion Iohexol 100 ml 06/24/24 14:15 06/24/24 14:09 Omnipaque 350 Mg/Ml 100 Ml Btl IJ 07/24/24 23:59 100 ml DIRECTED KALYAN Administration Sodium Chloride 50 ml 06/24/24 14:15 06/24/24 14:08 Normal Saline - Diluent 50 Ml Vial IJ 50 ml .FOR DI USE KALYAN Administration IV IV Catheter Type [Right Upper Peripheral IV arm] IV Catheter Type [Right Saline Lock Antecubital] IV Catheter Gauge [Right Upper 18 arm] IV Catheter Gauge [Right 20 Antecubital] Diet Orders Category Date Time Status Regular/Normal [DIET] Nutrition 06/24/24 Dinner Active Diagnostics 06/24/24 06/24/24 06/24/24 Range/Units 16:34 14:34 14:22 WBC (4.4-10.8) 10^3/uL RBC (4.36-5.78) 10^6/uL Hgb 6.9 L* (13.5-17.5) g/dL Hct 21.4 L (40.0-50.0) % MCV (80-95) fL MCH (27.0-33.0) pg MCHC (32.0-36.0) % RDW (11.8-14.1) % Plt Count (130-400) 10^3/uL MPV (8.0-11.0) fL Immature Gran % % Neutrophils % % Lymphocytes % % Monocytes % % Eosinophils % % Basophils % % Nucleated RBC % (0.0-0.3) % Absolute Neutrophils (1.2-6.7) 10^3/uL Absolute Lymphocytes (1.2-3.4) 10^3/uL Absolute Monocytes (0.1-0.8) 10^3/uL Absolute Eosinophils (0.0-0.7) 10^3/uL Absolute Basophils (0.0-0.2) 10^3/uL RBC Morphology Hypochromasia PT (9.1-11.1) sec INR (0.9-1.1) D-Dimer (<500) ng/mlFEU Sodium (136-145) mmol/L Potassium (3.5-5.1) mmol/L Chloride (98-107) mmol/L Carbon Dioxide (21.0-32.0) mmol/L Anion Gap (3-11) mmol/L BUN (7-18) mg/dL Creatinine (0.70-1.30) mg/dL Est GFR (CKD-EPI 2020) (mL/min/1.73m2) Glucose (74-106) mg/dL Calcium (8.5-10.1) mg/dL Magnesium (1.8-2.4) mg/dL Iron Pending TIBC Pending Transferrin % Sat Pending Total Bilirubin (0.2-1.0) mg/dL AST (15-37) U/L ALT (16-63) U/L Alkaline Phosphatase (46-116) U/L Creatine Kinase (39-308) U/L Troponin I (<or=76) ng/L Total Protein (6.4-8.2) g/dL Albumin (3.4-5.0) g/dL Urine Color Yellow (Yellow) Urine Clarity Clear (Clear) Urine pH 5.5 (5-8) Ur Specific [place] <= 1.005 (1.005-1.025) Urine Protein Negative (Neg-Trace) mg/dL Urine Ketones Trace H (Negative) mg/dL Urine Blood Negative (Negative) Urine Nitrite Negative (Negative) Urine Bilirubin Negative (Negative) Urine Urobilinogen 0.2 (Up to 0.2) mg/dL Ur Leukocyte Esterase Negative (Negative) Urine Glucose Negative (Negative) mg/dL ABO/Rh Blood Type Recheck Antibody Screen Crossmatch 06/24/24 06/24/24 06/24/24 Range/Units 14:08 13:13 12:54 WBC (4.4-10.8) 10^3/uL RBC (4.36-5.78) 10^6/uL Hgb (13.5-17.5) g/dL Hct (40.0-50.0) % MCV (80-95) fL MCH (27.0-33.0) pg MCHC (32.0-36.0) % RDW (11.8-14.1) % Plt Count (130-400) 10^3/uL MPV (8.0-11.0) fL Immature Gran % % Neutrophils % % Lymphocytes % % Monocytes % % Eosinophils % % Basophils % % Nucleated RBC % (0.0-0.3) % Absolute Neutrophils (1.2-6.7) 10^3/uL Absolute Lymphocytes (1.2-3.4) 10^3/uL Absolute Monocytes (0.1-0.8) 10^3/uL Absolute Eosinophils (0.0-0.7) 10^3/uL Absolute Basophils (0.0-0.2) 10^3/uL RBC Morphology Hypochromasia PT (9.1-11.1) sec INR (0.9-1.1) D-Dimer (<500) ng/mlFEU Sodium 135 L (136-145) mmol/L Potassium 4.9 (3.5-5.1) mmol/L Chloride 107 (98-107) mmol/L Carbon Dioxide 19.3 L (21.0-32.0) mmol/L Anion Gap 8.7 (3-11) mmol/L BUN 75 H (7-18) mg/dL Creatinine 1.4 H (0.70-1.30) mg/dL Est GFR (CKD-EPI 2020) 53.07 (mL/min/1.73m2) Glucose 139 H (74-106) mg/dL Calcium 8.2 L (8.5-10.1) mg/dL Magnesium (1.8-2.4) mg/dL Iron TIBC Transferrin % Sat Total Bilirubin (0.2-1.0) mg/dL AST (15-37) U/L ALT (16-63) U/L Alkaline Phosphatase (46-116) U/L Creatine Kinase (39-308) U/L Troponin I 6 5 (<or=76) ng/L Total Protein (6.4-8.2) g/dL Albumin (3.4-5.0) g/dL Urine Color (Yellow) Urine Clarity (Clear) Urine pH (5-8) Ur Specific [place] (1.005-1.025) Urine Protein (Neg-Trace) mg/dL Urine Ketones (Negative) mg/dL Urine Blood (Negative) Urine Nitrite (Negative) Urine Bilirubin (Negative) Urine Urobilinogen (Up to 0.2) mg/dL Ur Leukocyte Esterase (Negative) Urine Glucose (Negative) mg/dL ABO/Rh O Positive Blood Type Recheck Antibody Screen NEGATIVE Crossmatch See Detail 06/24/24 06/24/24 Range/Units 11:39 10:39 WBC 17.03 H (4.4-10.8) 10^3/uL RBC 2.47 L (4.36-5.78) 10^6/uL Hgb 7.9 L (13.5-17.5) g/dL Hct 23.7 L (40.0-50.0) % MCV 96 H (80-95) fL MCH 32.0 (27.0-33.0) pg MCHC 33.3 (32.0-36.0) % RDW 14.4 H (11.8-14.1) % Plt Count 527 H (130-400) 10^3/uL MPV 10.7 (8.0-11.0) fL Immature Gran % 0.6 % Neutrophils % 65.3 % Lymphocytes % 27.8 % Monocytes % 4.6 % Eosinophils % 1.1 % Basophils % 0.6 % Nucleated RBC % 0.0 (0.0-0.3) % Absolute Neutrophils 11.12 H (1.2-6.7) 10^3/uL Absolute Lymphocytes 4.73 H (1.2-3.4) 10^3/uL Absolute Monocytes 0.78 (0.1-0.8) 10^3/uL Absolute Eosinophils 0.19 (0.0-0.7) 10^3/uL Absolute Basophils 0.10 (0.0-0.2) 10^3/uL RBC Morphology See Below Hypochromasia 1+ PT 11.1 (9.1-11.1) sec INR 1.1 (0.9-1.1) D-Dimer 1643 H (<500) ng/mlFEU Sodium 136 (136-145) mmol/L Potassium 5.7 H (3.5-5.1) mmol/L Chloride 107 (98-107) mmol/L Carbon Dioxide 21.9 (21.0-32.0) mmol/L Anion Gap 7.1 (3-11) mmol/L BUN 72 H (7-18) mg/dL Creatinine 1.5 H (0.70-1.30) mg/dL Est GFR (CKD-EPI 2020) 48.85 (mL/min/1.73m2) Glucose 141 H (74-106) mg/dL Calcium 8.6 (8.5-10.1) mg/dL Magnesium 1.6 L (1.8-2.4) mg/dL Iron TIBC Transferrin % Sat Total Bilirubin 0.4 (0.2-1.0) mg/dL AST 16 (15-37) U/L ALT 18 (16-63) U/L Alkaline Phosphatase 47 (46-116) U/L Creatine Kinase 45 (39-308) U/L Troponin I 5 (<or=76) ng/L Total Protein 6.4 (6.4-8.2) g/dL Albumin 2.9 L (3.4-5.0) g/dL Urine Color (Yellow) Urine Clarity (Clear) Urine pH (5-8) Ur Specific [place] (1.005-1.025) Urine Protein (Neg-Trace) mg/dL Urine Ketones (Negative) mg/dL Urine Blood (Negative) Urine Nitrite (Negative) Urine Bilirubin (Negative) Urine Urobilinogen (Up to 0.2) mg/dL Ur Leukocyte Esterase (Negative) Urine Glucose (Negative) mg/dL ABO/Rh Blood Type Recheck O Positive Antibody Screen Crossmatch Intake and Output - 24 Hour Total 06/24/24 11:26 thru 06/24/24 16:32 Intake Total 1253 Output Total 500 Balance 753 Weight 99.79 kg Intake: IV 1000 Blood Product 253 Rbc Leuko Reduced Unit 253 [id number] Output: Urine 500 Falls Risk Assessment History of Falls No History 06/24/24 11:47 Contributing Factors No Factors 06/24/24 11:47 Ambulatory Aids Independent 06/24/24 11:47 Tubes/Lines None 06/24/24 11:47 Gait Evaluation No gait disturbance 06/24/24 11:47 Cognition No cognitive impairment 06/24/24 11:47 Fall Total Score 0 06/24/24 11:47 Level of Risk Standard/Low Risk 06/24/24 11:47 Problems (Last Reviewed 07/13/21 @ 15:24 by Mehdi Melendez MD) History of DVT (deep vein thrombosis) (Acute) Elevated MCV (Acute) Hypomagnesemia (Acute) Elevated BUN (Acute) GIB (gastrointestinal bleeding) (Chronic) Tachycardia (Acute) Acute blood loss anemia (ABLA) (Acute) Symptomatic anemia (Acute) v v v v v v v v v Sending and/or Receiving Nurses: Please use comment section below to note any information pertinent to the patient hand-off not included above. Information / Comments: Syncope Black tarry stool x many days third troponin cancelled HR one-teens 2nd unit blood infusing #18 YOBANY, #20 RAC A & O, 400 cc out urinal BNP RA satting fine FS 82/50s low for BPs Sinus tach regular no skin issues hit head with fall in usp CT neg no stool in ED re-draw after blood infused NS 125 cc/H Report received from: Angela Thomas RN
[2024-06-24] MEDS: Normal Saline Flush 10 ML SYR ×2 (18:35→20:42)
[2024-06-24] MEDS: Normal Saline 1,000 ML 125 ML IV ×2 (20:35→22:55)
[2024-06-24] MEDS: Pantoprazole 40 MG TABCR PO (20:41)
[2024-06-24] MEDS: Magnesium Chloride 64 MG TABCR PO (20:41)
[2024-06-24 21:05] LABS: HCT 28.5 % (40.0-50.0)
[2024-06-24 21:07] LABS: HGB 9.5 g/dL (13.5-17.5)
[2024-06-25] VITALS (231 sets, daily range): BP systolic 69–143; BP diastolic 38–86; PULSE 0–122; RESP 9–28; TEMP 37.1–38.1; O2SAT 82–98
[2024-06-25 03:34] LABS: HCT 22.6 % (40.0-50.0); MCH 31.6 pg (27.0-33.0); MPV 10.3 fL (8.0-11.0); Platelet Count 417 10^3/uL (130-400); RBC 2.53 10^6/uL (4.36-5.78); RDW 14.8 % (11.8-14.1); RDW-SD 47.2 fL; WBC 14.75 10^3/uL (4.4-10.8)
[2024-06-25 03:38] LABS: MCHC 35.4 % (32.0-36.0); MCV 89 fL (80-95)
--- NOTE | 2024-06-25 03:53 | W.EVENT ---
Date of service: 06/25/24 Time of Service: 03:53 Event Note: Notified by ICU that the patient is hypotensive w/ SBP 70. His repeat H/H trend was 6.9 -> 9.5 and most recently 8. ICU notes that he has had 3 episodes of black tarry stools. I recommend that we do 1.5L NS Bolus via 18 guage and start Phenylpehrine for hypovolemic hypotension. -1.5 L Bolus w/ 18 gauge -Start Phenylephrine and up-titrate to MAP >70 -If he continues to be refractory w/ IVG and vasopressors will consider repeat PRBC and interventional management Time Spent with Patient Time spent in critical care(minutes): 30 Time Spent Included: Coordination of care, Chart review, Documenting critically ill care and Discussing critically ill care with other medical staff
[2024-06-25] MEDS: Normal Saline 1,000 ML 1000 ML IV (04:10)
[2024-06-25 04:23] LABS: Folate 18.7 ng/mL (8.6-20.0)
[2024-06-25 04:35] LABS: Vitamin B12 396 pg/mL (193-986)
[2024-06-25] MEDS: Normal Saline 500 ML IV (05:09)
[2024-06-25 06:20] LABS: Abs Immature Grans 0.07 10^3/uL (0.0-0.06); Absolute Basophil Count 0.08 10^3/uL (0.0-0.2); Absolute Eosinophil Count 0.21 10^3/uL (0.0-0.7); Basophils % 0.5 %; Eosinophils % 1.3 %; HCT 23.2 % (40.0-50.0); HGB 7.6 g/dL (13.5-17.5); Immature Grans % 0.4 %; Lymphocytes % 41.1 %; MCH 30.8 pg (27.0-33.0); MCHC 32.8 % (32.0-36.0); MCV 94 fL (80-95); MPV 10.6 fL (8.0-11.0); Monocytes % 7.6 %; Neutrophils % 49.1 %; Platelet Count 371 10^3/uL (130-400); RBC 2.47 10^6/uL (4.36-5.78); RDW 15.2 % (11.8-14.1); RDW-SD 51.1 fL; WBC 15.95 10^3/uL (4.4-10.8)
[2024-06-25 06:51] LABS: Absolute Lymphocyte Count 6.56 10^3/uL (1.2-3.4); Absolute Monocyte Count 1.21 10^3/uL (0.1-0.8); Absolute Neutrophil Count 7.83 10^3/uL (1.2-6.7)
[2024-06-25 06:53] LABS: ALT 16 U/L (16-63); AST 16 U/L (15-37); Albumin 2.4 g/dL (3.4-5.0); Alkaline Phosphatase 36 U/L (46-116); Anion Gap 8.7 mmol/L (3-11); BUN 64 mg/dL (7-18); Bilirubin, Total 0.4 mg/dL (0.2-1.0); CO2 19.3 mmol/L (21.0-32.0); CREATININE 1.4 mg/dL (0.70-1.30); Calcium 8.1 mg/dL (8.5-10.1); Chloride 112 mmol/L (98-107); Estimated GFR 53.07 (mL/min/1.73m2); Glucose 101 mg/dL (74-106); Potassium 4.5 mmol/L (3.5-5.1); Sodium 140 mmol/L (136-145); Total Protein 5.4 g/dL (6.4-8.2)
[2024-06-25 07:09] LABS: Diff Comment Agrees w/ Instrument
[2024-06-25 07:10] LABS: Hypochromasia 2+
[2024-06-25] MEDS: Escitalopram 20 MG TAB PO (08:04)
[2024-06-25] MEDS: Pantoprazole 40 MG TABCR PO ×2 (08:04→20:10)
[2024-06-25] MEDS: Magnesium Chloride 64 MG TABCR PO ×2 (08:04→20:10)
--- NOTE | 2024-06-25 08:16 | INITIAL_ITS ---
Date of service: 06/25/24 Time of Service: 08:16 Care Management Initial Assmt Initial Assessment Reason for Hospitalization: GIB Functional Status/Living Situation Patient Presentation: José Manuel is being closely monitored and treated in the ICU for a GI bleed and is waiting for an EDG. Surgical is consulted, per MD. José Manuel is lying in bed with a duty officer in his room. CM will follow. Town of Residence: [place] (from [facility]) Resides with: Other (Inmate) Employment Status: Unemployed Instrumental Activities of Daily Living (ADLs): Independent Medications Medication Management: No Issues/Barriers identified Advance Directives Advance Directives: Do you have an Advance Directive: N 06/24/24 11:54 AD On File at [facility]: N 06/24/24 11:54 Date Asked 06/24/24 06/24/24 11:54 AD Date Reviewed COLST On File at [facility] COLST Date Scanned Code Status Resuscitation Status Full Code Insurance Coverage/Financial Issues Insurance: [facility] - [id number] Care Team Visit Care Team Role Provider Type Unknown Unknown Primary Care Provider STAFF PHYSICIAN Vicky Noland Other Providers GAS CONTROLLER Sade Glaser Other Providers GAS CONTROLLER Michelle Best Other Providers GAS CONTROLLER Jovita Cunningham RN Other Providers GAS CONTROLLER Valerie Regalado Other Providers GAS CONTROLLER José Manuel Godinez MD Emergency Provider [facility] STAFF PHYSICIAN Clement Regalado MD Admit Provider [facility] STAFF PHYSICIAN Attending Provider Discharge Potential Discharge Needs: PCP F/U Appt and Surgical F/U Appt Anticipated Barriers to Discharge: None Identified Patient/Family Education Needs: Review discharge instructions, discuss Ask Me Three Transportation: Facility Transport Plan: José Manuel is admitted to the ICU with a GI bleed and is awaiting an EGD. He will return to [facility] when medically ready. Facility will transport. CM will follow. Social Determinants of Health Screening Social Determinants of health last assessed in clinic: 06/25/24 Will the Patient Participate in the Screening?: Yes Do you worry about having a steady place to live?: no Problems where you live: no known problems In the past 12 months, have you had to go without electric, gas, oil or water in your home?: no 1. Within the past 12 months, we worried whether our food would run out before we got money to buy more.: Never true 2. Within the past 12 months, the food we bought just didn't last and we didn't have money to get more.: Never true Has lack of transportation kept you from medical appointments or from doing things needed for daily living?: no Has anyone in your life made you feel unsafe or unsupported?: no How hard is it for you to pay for the very basics like food, housing, medical care, and heating? Would you say it is:: Not hard at all Do you want help finding or keeping work or a job?: I do not need or want help If for any reason you need help with day-to-day activities such as bathing, preparing meals, shopping, managing finances, etc., do you get the help you need?: I don?t need any help How often do you feel lonely or isolated from those around you?: Never Do you speak a language other than Mauritian at home?: No Does the patient want assistance with any of the above?: No PFSH All Active Problems (Updated 06/24/24 @ 16:11 by Clement Regalado MD) History of DVT (deep vein thrombosis) (Acute) Elevated MCV (Acute) Hypomagnesemia (Acute) Elevated BUN (Acute) GIB (gastrointestinal bleeding) (Chronic) Tachycardia (Acute) Acute blood loss anemia (ABLA) (Acute) Symptomatic anemia (Acute) Social History Smoking/Tobacco Use Status: Never Smoking risk assessment performed?: Yes Alcohol Intake: current Substance use type: does not use Housing: other
[2024-06-25] MEDS: Normal Saline 1,000 ML 125 ML IV ×2 (08:39→16:30)
[2024-06-25] MEDS: Lidocaine 2% Jelly 6 ML SYR (09:12)
--- NOTE | 2024-06-25 11:05 | W.PM.PROGNOT ---
Date of Service Date of service: 06/25/24 Time of Service: 11:05 Assessment and Plan Assessment and plan (1) Symptomatic anemia: Status: Acute Assessment and plan: pt is getting 2 units prbc in ed. Recheck cbc in am. Monitor vitals. Will place pt in the ICU. Pt did have a good response to transfusions but has dropped a gram since then. I will check a reticulocyte count as well (2) Acute blood loss anemia (ABLA): Status: Acute Assessment and plan: as above and the addition of protonix 40mg po bid 06/25/24 Started on sulcrafate, cw PPI (3) Tachycardia: Status: Acute Assessment and plan: as above (4) GIB (gastrointestinal bleeding): Status: Chronic Assessment and plan: Consult to GS placed per discussion with ED. Add hpylori and hemoccult check stool. (5) Elevated BUN: Status: Acute Assessment and plan: Elevated Bun/Cr ratio most likely 2/2 upper GIB. (6) Hypomagnesemia: Status: Acute Assessment and plan: replace (7) Elevated MCV: Status: Acute Assessment and plan: check b12/folate/fe/tibc. Concern for mixed disorder 06/25/24 labs are reassuring, low normal iron level (8) History of DVT (deep vein thrombosis): Status: Acute Assessment and plan: scd currently 2/2 concern for bleeding. Pt would benefit from evaluation of hypercoagulable status Subjective Subjective Interval history since last seen: Pt seen and examined in his room. Overnight events reviewed. Exam Narrative Exam Narrative: HEENT: Normocephalic atraumatic mucous membranes moist oropharynx clear extract motions are intact Neck: No lymphadenopathy no JVD no thyromegaly Cardiovascular: Tachycardia but no murmur rubs or gallops Pulm: Clear to auscultation bilaterally good air exchange no accessory muscle use noted can speak in complete sentences Abdomen: Soft nontender nondistended bowel sounds active no hepatosplenomegaly is noted on exam Extremities: No sinus clubbing or edema bilaterally Neurologic: Cranial nerves II through XII intact as tested reflexes in upper lower extremity normal as tested Psych: Patient is alert oriented x 3 can give linear history Objective Last Vital Signs Temp 37.3 C 06/25/24 07:15 Pulse 81 06/25/24 10:31 Resp 16 06/25/24 10:31 BP 96/64 L 06/25/24 10:31 Pulse Ox 96 06/25/24 10:31 Laboratory Results - last 24 hr 06/24/24 06/24/24 06/24/24 10:39 11:39 12:54 WBC 17.03 H RBC 2.47 L Hgb 7.9 L Hct 23.7 L MCV 96 H MCH 32.0 MCHC 33.3 RDW 14.4 H Plt Count 527 H MPV 10.7 Immature Gran % 0.6 Neutrophils % 65.3 Lymphocytes % 27.8 Monocytes % 4.6 Eosinophils % 1.1 Basophils % 0.6 Nucleated RBC % 0.0 Absolute Neutrophils 11.12 H Absolute Lymphocytes 4.73 H Absolute Monocytes 0.78 Absolute Eosinophils 0.19 Absolute Basophils 0.10 RBC Morphology See Below Hypochromasia 1+ PT 11.1 INR 1.1 D-Dimer 1643 H Sodium 136 Potassium 5.7 H Chloride 107 Carbon Dioxide 21.9 Anion Gap 7.1 BUN 72 H Creatinine 1.5 H Est GFR (CKD-EPI 2020) 48.85 Glucose 141 H Calcium 8.6 Magnesium 1.6 L Iron TIBC Transferrin % Sat Total Bilirubin 0.4 AST 16 ALT 18 Alkaline Phosphatase 47 Creatine Kinase 45 Troponin I 5 5 Total Protein 6.4 Albumin 2.9 L Vitamin B12 Folate Urine Color Urine Clarity Urine pH Ur Specific [place] Urine Protein Urine Ketones Urine Blood Urine Nitrite Urine Bilirubin Urine Urobilinogen Ur Leukocyte Esterase Urine Glucose ABO/Rh Blood Type Recheck O Positive Antibody Screen GEORGE, Polyspecific Crossmatch Reaction Clerical Check Clerical Work Check Pre-Trans Blood Type Pre-Trans Bld Appearanc Pre-Trans GEORGE Post-Trans Blood Type Post-Trans Spec Appear Post-Trans GEORGE Reaction Pathol Review 06/24/24 06/24/24 06/24/24 13:13 14:08 14:22 WBC RBC Hgb Hct MCV MCH MCHC RDW Plt Count MPV Immature Gran % Neutrophils % Lymphocytes % Monocytes % Eosinophils % Basophils % Nucleated RBC % Absolute Neutrophils Absolute Lymphocytes Absolute Monocytes Absolute Eosinophils Absolute Basophils RBC Morphology Hypochromasia PT INR D-Dimer Sodium 135 L Potassium 4.9 Chloride 107 Carbon Dioxide 19.3 L Anion Gap 8.7 BUN 75 H Creatinine 1.4 H Est GFR (CKD-EPI 2020) 53.07 Glucose 139 H Calcium 8.2 L Magnesium Iron TIBC Transferrin % Sat Total Bilirubin AST ALT Alkaline Phosphatase Creatine Kinase Troponin I 6 Total Protein Albumin Vitamin B12 Folate Urine Color Yellow Urine Clarity Clear Urine pH 5.5 Ur Specific [place] <= 1.005 Urine Protein Negative Urine Ketones Trace H Urine Blood Negative Urine Nitrite Negative Urine Bilirubin Negative Urine Urobilinogen 0.2 Ur Leukocyte Esterase Negative Urine Glucose Negative ABO/Rh O Positive Blood Type Recheck Antibody Screen NEGATIVE GEORGE, Polyspecific Crossmatch See Detail Reaction Clerical Check Clerical Work Check Pre-Trans Blood Type Pre-Trans Bld Appearanc Pre-Trans GEORGE Post-Trans Blood Type Post-Trans Spec Appear Post-Trans GEORGE Reaction Pathol Review 06/24/24 06/24/24 06/24/24 14:34 16:34 20:55 WBC RBC Hgb 6.9 L* 9.5 L D Hct 21.4 L 28.5 L MCV MCH MCHC RDW Plt Count MPV Immature Gran % Neutrophils % Lymphocytes % Monocytes % Eosinophils % Basophils % Nucleated RBC % Absolute Neutrophils Absolute Lymphocytes Absolute Monocytes Absolute Eosinophils Absolute Basophils RBC Morphology Hypochromasia PT INR D-Dimer Sodium Potassium Chloride Carbon Dioxide Anion Gap BUN Creatinine Est GFR (CKD-EPI 2020) Glucose Calcium Magnesium Iron 68 TIBC 254 Transferrin % Sat 27 Total Bilirubin AST ALT Alkaline Phosphatase Creatine Kinase Troponin I Total Protein Albumin Vitamin B12 Folate Urine Color Urine Clarity Urine pH Ur Specific [place] Urine Protein Urine Ketones Urine Blood Urine Nitrite Urine Bilirubin Urine Urobilinogen Ur Leukocyte Esterase Urine Glucose ABO/Rh Blood Type Recheck Antibody Screen GEORGE, Polyspecific Crossmatch Reaction Clerical Check Clerical Work Check Pre-Trans Blood Type Pre-Trans Bld Appearanc Pre-Trans GEORGE Post-Trans Blood Type Post-Trans Spec Appear Post-Trans GEORGE Reaction Pathol Review 06/24/24 06/24/24 06/25/24 22:01 22:16 03:24 WBC 14.75 H RBC 2.53 L Hgb 8.0 L Hct 22.6 L MCV 89 D MCH 31.6 MCHC 35.4 D RDW 14.8 H Plt Count 417 H MPV 10.3 Immature Gran % Neutrophils % Lymphocytes % Monocytes % Eosinophils % Basophils % Nucleated RBC % Absolute Neutrophils Absolute Lymphocytes Absolute Monocytes Absolute Eosinophils Absolute Basophils RBC Morphology Hypochromasia PT INR D-Dimer Sodium Potassium Chloride Carbon Dioxide Anion Gap BUN Creatinine Est GFR (CKD-EPI 2020) Glucose Calcium Magnesium Iron TIBC Transferrin % Sat Total Bilirubin AST ALT Alkaline Phosphatase Creatine Kinase Troponin I Total Protein Albumin Vitamin B12 396 Folate 18.7 Urine Color Urine Clarity Urine pH Ur Specific [place] Urine Protein Urine Ketones Urine Blood Urine Nitrite Urine Bilirubin Urine Urobilinogen Ur Leukocyte Esterase Urine Glucose ABO/Rh Blood Type Recheck Antibody Screen GEORGE, Polyspecific Cancelled Positive Crossmatch Reaction Clerical Check Cancelled No Clerical Errors Clerical Work Check Cancelled None Pre-Trans Blood Type Cancelled O Positive Pre-Trans Bld Appearanc Cancelled No Hemolysis/Icterus Pre-Trans GEORGE Cancelled POSITIVE Post-Trans Blood Type Cancelled O Positive Post-Trans Spec Appear Cancelled No Hemolysis/Icterus Post-Trans GEORGE Cancelled POSITIVE Reaction Pathol Review Cancelled 06/25/24 06:06 WBC 15.95 H RBC 2.47 L Hgb 7.6 L Hct 23.2 L MCV 94 D MCH 30.8 MCHC 32.8 D RDW 15.2 H Plt Count 371 MPV 10.6 Immature Gran % 0.4 Neutrophils % 49.1 Lymphocytes % 41.1 Monocytes % 7.6 Eosinophils % 1.3 Basophils % 0.5 Nucleated RBC % 0.0 Absolute Neutrophils 7.83 H Absolute Lymphocytes 6.56 H Absolute Monocytes 1.21 H Absolute Eosinophils 0.21 Absolute Basophils 0.08 RBC Morphology See Below Hypochromasia 2+ PT INR D-Dimer Sodium 140 Potassium 4.5 Chloride 112 H Carbon Dioxide 19.3 L Anion Gap 8.7 BUN 64 H Creatinine 1.4 H Est GFR (CKD-EPI 2020) 53.07 Glucose 101 Calcium 8.1 L Magnesium Iron TIBC Transferrin % Sat Total Bilirubin 0.4 AST 16 ALT 16 Alkaline Phosphatase 36 L Creatine Kinase Troponin I Total Protein 5.4 L Albumin 2.4 L Vitamin B12 Folate Urine Color Urine Clarity Urine pH Ur Specific [place] Urine Protein Urine Ketones Urine Blood Urine Nitrite Urine Bilirubin Urine Urobilinogen Ur Leukocyte Esterase Urine Glucose ABO/Rh Blood Type Recheck Antibody Screen GEORGE, Polyspecific Crossmatch Reaction Clerical Check Clerical Work Check Pre-Trans Blood Type Pre-Trans Bld Appearanc Pre-Trans GEORGE Post-Trans Blood Type Post-Trans Spec Appear Post-Trans GEORGE Reaction Pathol Review Time Spent with Patient Time Spent with Patient: 25-34 minutes Time was spent: preparing to see the patient(eg.review tests), obtaining and/or reviewing separately otained hiistory, ordering medications,tests, procedures, referring, communicating with other health career center advisor, indepentently interpreting results, counseling the patient and care coordination
[2024-06-25] MEDS: Sucralfate 1 GM TAB PO ×3 (11:31→22:33)
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
[2024-06-25] MEDS: Tamsulosin 0.4 MG CAPCR 0.8 MG PO (16:34)
[2024-06-25] MEDS: Normal Saline Flush 10 ML SYR (20:28)
[2024-06-25] MEDS: Acetaminophen 325 MG TAB PO (22:55)
[2024-06-26] VITALS (46 sets, daily range): BP systolic 83–132; BP diastolic 53–76; PULSE 73–120; RESP 11–23; TEMP 36.6–37.9; O2SAT 90–98; BMI 33.0
[2024-06-26] MEDS: Normal Saline 1,000 ML 125 ML IV (02:05)
[2024-06-26] MEDS: Sucralfate 1 GM TAB PO ×4 (04:11→22:12)
[2024-06-26] MEDS: Acetaminophen 325 MG TAB PO ×2 (04:18→11:24)
[2024-06-26 06:26] LABS: Reticulocyte 3.5 % (0.5-2.4)
[2024-06-26 06:28] LABS: Abs Immature Grans 0.05 10^3/uL (0.0-0.06); Absolute Eosinophil Count 0.52 10^3/uL (0.0-0.7); Absolute Lymphocyte Count 3.57 10^3/uL (1.2-3.4); Absolute Monocyte Count 0.77 10^3/uL (0.1-0.8); Basophils % 0.9 %; Eosinophils % 4.4 %; HCT 22.2 % (40.0-50.0); HGB 7.5 g/dL (13.5-17.5); Immature Grans % 0.4 %; Lymphocytes % 30.5 %; MCH 30.9 pg (27.0-33.0); MCHC 33.8 % (32.0-36.0); MCV 91 fL (80-95); MPV 10.7 fL (8.0-11.0); Monocytes % 6.6 %; Neutrophils % 57.2 %; Platelet Count 370 10^3/uL (130-400); RBC 2.43 10^6/uL (4.36-5.78); RDW 15.5 % (11.8-14.1); RDW-SD 50.6 fL; WBC 11.72 10^3/uL (4.4-10.8)
[2024-06-26 06:30] LABS: Absolute Basophil Count 0.11 10^3/uL (0.0-0.2)
[2024-06-26 06:53] LABS: ALT 19 U/L (16-63); AST 20 U/L (15-37); Albumin 2.4 g/dL (3.4-5.0); Alkaline Phosphatase 36 U/L (46-116); Anion Gap 6.7 mmol/L (3-11); BUN 30 mg/dL (7-18); Bilirubin, Total 0.4 mg/dL (0.2-1.0); CO2 21.3 mmol/L (21.0-32.0); CREATININE 1.4 mg/dL (0.70-1.30); Chloride 110 mmol/L (98-107); Estimated GFR 53.07 (mL/min/1.73m2); Glucose 111 mg/dL (74-106); Potassium 4.2 mmol/L (3.5-5.1); Sodium 138 mmol/L (136-145); Total Protein 5.2 g/dL (6.4-8.2)
[2024-06-26] MEDS: Tamsulosin 0.4 MG CAPCR 0.8 MG PO (07:45)
[2024-06-26] MEDS: Pantoprazole 40 MG TABCR PO ×2 (07:45→20:50)
[2024-06-26] MEDS: Escitalopram 20 MG TAB PO (07:45)
[2024-06-26] MEDS: Magnesium Chloride 64 MG TABCR PO ×2 (07:45→20:49)
--- NOTE | 2024-06-26 08:31 | W.ANESPRE ---
General Info Date of Service Date Performed: 06/26/24 Height: 5 ft 9 in Weight: 101.7 kg Body Mass Index (BMI): 33.0 Surgical Procedure: Operation Date: 06/26/24 09:05 Proposed Procedure Side Surgeon p Gastroscopy Weston Calderon MD Actual Procedure Side Surgeon p Gastroscopy Weston Calderon MD Pre-Op Diagnosis Post-Op Diagnosis Acute blood loss anemia (ABLA) Meds Allergies and Home Medications Allergies Allergy/AdvReac Type Severity Reaction Status Date / Time No Known Allergies Allergy Verified 06/24/24 11:39 Home Medication ?Medication ?Instructions ?Recorded acetaminophen 500 mg tablet 500 mg PO BID PRN 07/13/21 dulaglutide 1.5 mg/0.5 mL 1.5 mg subcut DIRECTED 07/13/21 subcutaneous pen injector escitalopram oxalate 20 mg tablet 20 mg PO DAILY 07/13/21 lisinopril 10 mg tablet 10 mg PO DAILY 07/13/21 metformin 1,000 mg tablet 1,000 mg PO BID 07/13/21 naproxen 500 mg tablet 500 mg PO BID PRN 06/24/24 Current Visit Medications: Current Medications Generic Name Dose Route Start Last Admin Trade Name Freq PRN Reason Stop Dose Admin Acetaminophen 0 mg 06/24/24 15:58 06/26/24 04:18 Acetaminophen 325 Mg Tab PO 650 mg Q4H PRN PRN Administration Al Hydrox/Mg Hydrox/Simethicone 30 ml 06/24/24 15:58 Mylanta Suspension 30 Ml Cup PO Q2H PRN PRN Docusate Sodium 100 mg 06/24/24 15:58 Docusate Sodium 100 Mg Cap PO TID PRN PRN Escitalopram Oxalate 20 mg 06/25/24 08:30 06/26/24 07:45 Escitalopram 20 Mg Tab PO 20 mg DAILY KALYAN Administration Sodium Chloride 1,000 mls @ 125 mls/hr 06/24/24 16:00 06/26/24 02:05 Saline 1000ml Bag IV 125 mls/hr INFUSION KALYAN Administration Phenylephrine HCl 10 mg/ 250 mls @ 75 mls/hr 06/25/24 04:15 06/25/24 16:44 Sodium Chloride IV 0 mcg/min INFUSION KALYAN 0 mls/hr Titration Protocol 50 MCG/MIN Lisinopril 10 mg 06/25/24 08:30 06/25/24 09:54 Lisinopril 10 Mg Tab PO Not Given DAILY [facility] Magnesium Chloride 64 mg 06/24/24 20:00 06/26/24 07:45 Magnesium Chloride 64 Mg Tabcr PO 64 mg BID KALYAN Administration Magnesium Hydroxide 30 ml 06/24/24 15:58 Milk Of Magnesia 30 Ml Cup PO DAILY PRN PRN Pantoprazole Sodium 40 mg 06/24/24 20:00 06/26/24 07:45 Pantoprazole 40 Mg Tabcr PO 40 mg BID@729,1999 [facility] Administration Pt's Own Dulaglutide 1.5 each 06/29/24 08:30 1.5 Mg/0.5 Ml Pen SC Th@0830 [facility] Polyethylene Glycol 17 gm 06/24/24 15:58 Polyethylene Glycol 3350 17 Gm Packet PO DAILY PRN PRN Constipation Sucralfate 1 gm 06/26/24 11:30 Sucralfate 1 Gm Tab PO AC & HS KALYAN Tamsulosin HCl 0.8 mg 06/25/24 17:30 06/26/24 07:45 Tamsulosin 0.4 Mg Capcr PO 0.8 mg DAILY KALYAN Administration PFSH Active Problems Active Problems: Problem Status Onset Code History of DVT (deep vein thrombosis) Acute Z86.718 Elevated MCV Acute R71.8 Hypomagnesemia Acute E83.42 Elevated BUN Acute R79.9 GIB (gastrointestinal bleeding) Chronic K92.2 Tachycardia Acute R00.0 Acute blood loss anemia (ABLA) Acute D62 Symptomatic anemia Acute D64.9 Tobacco Smoking/Tobacco Use Status: Never Alcohol Alcohol Intake: current Substance Use Substance use type: does not use Vital Signs and Lab Results Vital Signs Most Recent Vital Signs in EMR: Most Recent Vital Signs Temp Pulse Resp BP Pulse Ox 37.3 C 78 15 85/55 L 95 06/26/24 08:10 06/26/24 06:31 06/26/24 06:31 06/26/24 06:31 06/26/24 06:31 Point of Care Results Point of Care Results: Finger Stick Blood Glucose 116 06/26/24 06:10 Lab Results 06/26/24 06:10 06/26/24 06:10 Blood Type / Crossmatch: Antibody Screen NEGATIVE 06/24/24 Crossmatch See Detail 06/24/24 Complete Blood Count: White Blood Count 11.72 10^3/uL (4.4-10.8) H 06/26/24 06:10 Red Blood Count 2.43 10^6/uL (4.36-5.78) L 06/26/24 06:10 Hemoglobin 7.5 g/dL (13.5-17.5) L 06/26/24 06:10 Hematocrit 22.2 % (40.0-50.0) L 06/26/24 06:10 Platelet Count 370 10^3/uL (130-400) 06/26/24 06:10 Complete Metabolic Panel: Sodium 138 mmol/L (136-145) 06/26/24 06:10 Potassium 4.2 mmol/L (3.5-5.1) 06/26/24 06:10 Chloride 110 mmol/L (98-107) H 06/26/24 06:10 Carbon Dioxide 21.3 mmol/L (21.0-32.0) 06/26/24 06:10 BUN 30 mg/dL (7-18) H 06/26/24 06:10 Creatinine 1.4 mg/dL (0.70-1.30) H 06/26/24 06:10 Est GFR (CKD-EPI 2020) 53.07 (mL/min/1.73m2) 06/26/24 06:10 Magnesium 1.6 mg/dL (1.8-2.4) L 06/24/24 11:39 Calcium 8.0 mg/dL (8.5-10.1) L 06/26/24 06:10 Albumin 2.4 g/dL (3.4-5.0) L 06/26/24 06:10 Glucose 111 mg/dL (74-106) H 06/26/24 06:10 Liver Function Panel: Alanine Aminotransferase (ALT/SGPT) 19 U/L (16-63) 06/26/24 06:10 Aspartate Amino Transf (AST/SGOT) 20 U/L (15-37) 06/26/24 06:10 Coagulation Panel: INR International Normalized Ratio 1.1 (0.9-1.1) 06/24/24 10:39 Prothrombin Time 11.1 sec (9.1-11.1) 06/24/24 10:39 D-Dimer 1643 ng/mlFEU (<500) H 06/24/24 11:39 Cardiac Panel: Troponin I 6 ng/L (<or=76) 06/24/24 Creatine Kinase 45 U/L (39-308) 06/24/24 Arterial Blood Gas: No Data to Display Venous Blood Gas: No Data to Display Pancreas Panel: No Data to Display Thyroid Panel: No Data to Display Infectious Disease: No Data to Display Blood Cultures: No Data to Display Toxicology Panel: No Data to Display Anesthesia Assessment and Plan Anesthesia History Personal History: No History of Anesthesia Complications Family History: No Family History of Anesthesia Complications Exercise Tolerance Exercise Tolerance: Metabolic Equivalents>4 Pertinent Negatives Pertinent Negatives: No Symptoms of GERD Cardiac & Pulmonary Exam Cardiac Exam: Normal S1/S2 Heart Sounds Pulmonary Exam: Clear Bilateral Breath Sounds Implantable Cardiac Device Does patient have a Pacemaker or an ICD?: No Airway Exam Known Difficult Airway: No Mallampati Class: 2 Mouth Opening: Normal (> 3cm) Thyromental Distance: Greater than 3 cm Neck Range of Motion: Full ROM Neck Circumference: Normal Teeth Condition: Normal Dentition ASA Classification ASA Score: ASA 3 Emergency Case?: No NPO Status NPO Status: NPO Clears >2 hours, Solids >8 hours Anesthesia Plan Resuscitation Status: Full Code Anesthesia Technique: General Anesthesia Airway Planned: Natural Airway Monitors Used: Standard Monitors Preoperative Comments:: This is a 73-year-old male arrived emergency department in police custody [facility] the jail in setting of syncopal episode. Patient reports that he has had black stools for the past several days. He notes that he remotely had a colonoscopy and endoscopy for a GI bleed but he cannot recall when or where this occurred. He said that he was previously on apixaban and warfarin in setting of atrial fibrillation but that he is no longer taking these medications. Has received a total of 3 units or PRBCs. Denies N/V.
--- NOTE | 2024-06-26 09:19 | ENDO_ITS ---
Date of service: 06/26/24 Time of Service: 09:19 Endoscopy Report PROCEDURE DESCRIPTION: PROCEDURES PERFORMED: 1. EGD with biopsies PREOPERATIVE DIAGNOSIS: GI bleeding POSTOPERATIVE DIAGNOSIS: Duodenal ulcer, bile reflux SURGEON: Margarito Calderon MD INDICATION FOR PROCEDURE: 73-year-old man who presented with melanotic bleeding for 3 to 4 days and acute anemia. No abdominal pain. FINDINGS: D2/D3 = normal, no evidence of ongoing bleeding D1/bulb = anterior ulcer. Not actively bleeding. No visible vessel in the base. Cold forceps biopsies taken at the periphery. Pylorus = normal Antrum = normal appearance, no ulcers or inflammation, cold forceps biopsies were taken to rule out H. pylori routinely Body = normal appearance - except that there is carolynn bile pooled in the stomach body consistent with the diagnosis of bile reflux Fundus = normal, no polyps, intact fundoplication Cardia = normal Hiatus = no obvious hiatal hernia, fundoplication adequately tight Distal esophagus = no inflammation, no esophagitis, no Nascimento's, no stricture. Mid esophagus = normal Proximal esophagus/hypopharynx/vocal cords = normal SURVEILLANCE-INTERVAL/FOLLOW-UP: Medical treatment of peptic ulcer disease. Follow-up with PCP. Repeat EGD in 3 months can be considered to ensure resolution of the ulcer. Specimens: Yes EBL: Minimal COMPLICATIONS: None Procedure in detail: The patient gave written consent and was in agreement with the indications, the potential risks as well as the benefits of the procedure. The patient was taken to the endoscopy suite and laid on their left side. Anesthesia was given which was tolerated well. We performed a timeout and we are in agreement I started the procedure. A well-lubricated endoscope was gently and carefully advanced down the esophagus, into the stomach the scope was and through the pylorus into the duod enum. The scope was then slowly withdrawn with the above-noted findings/interventions. The patient tolerated the procedure well.
--- NOTE | 2024-06-26 09:24 | PDOC.CMPRO ---
Date of service: 06/26/24 Time of Service: 09:24 Care Management Progress Note Progress Note Text Progress Note Text: José Manuel was sitting up in a chair accompanied by 2 corrections officers when CM met with him. He had an EGD this morning and stated that he is feeling pretty good. He was admitted with a GI bleed and received 2 units of PRBCs last evening. His H&H was 7.5/22.2 this morning and although he does have a duodenal ulcer, there was no evidence of bleeding noted during the EGD. He will likely [facility] to [facility] as long as her remains stable. Discharge Potential Discharge Needs: Other (facility provider follow up) Anticipated Barriers to Discharge: None Identified Patient/Family Education Needs: Review discharge instructions, discuss Ask Me Three Transportation: Facility Transport Plan: Anticipate [facility] medically [facility]. He will follow up with his facility provider and plan of care and transport with corrections staff. CM will follow. Social Determinants of Health Screening Social Determinants of health last assessed in clinic: 06/26/24 Will the Patient Participate in the Screening?: Yes Do you worry about having a steady place to live?: no Problems where you live: no known problems In the past 12 months, have you had to go without electric, gas, oil or water in your home?: no 1. Within the past 12 months, we worried whether our food would run out before we got money to buy more.: Never true 2. Within the past 12 months, the food we bought just didn't last and we didn't have money to get more.: Never true Has lack of transportation kept you from medical appointments or from doing things needed for daily living?: no Has anyone in your life made you feel unsafe or unsupported?: no How hard is it for you to pay for the very basics like food, housing, medical care, and heating? Would you say it is:: Not hard at all Do you want help finding or keeping work or a job?: I do not need or want help If for any reason you need help with day-to-day activities such as bathing, preparing meals, shopping, managing finances, etc., do you get the help you need?: I don?t need any help How often do you feel lonely or isolated from those around you?: Never Do you speak a language other than Spanish at home?: No Does the patient want assistance with any of the above?: No
--- NOTE | 2024-06-26 10:12 | PGE_ITS ---
Date of Service Date of service: 06/26/24 Time of Service: 10:12 Assessment and Plan Assessment and plan (1) Acute blood loss anemia (ABLA): Status: Acute Assessment and plan: 73-year-old man with a duodenal ulcer. Management strategy is maximum?dose medical therapy. It is not actively bleeding at the time of endoscopy. If continues to have bleeding from it, then he should be transferred for IR embolization. Surgery signing off at this time. If hemoglobin stays stable, he can be discharged probably tomorrow. Defer to his primary care providers on outpatient management and follow-up. Subjective Subjective Interval history since last seen: Overnight José Manuel got 1 unit of blood. His hemoglobin is above 7. He is not on pressors anymore. He has no abdominal complaints. His EGD showed a non-? bleeding duodenal ulcer. Exam Narrative Exam Narrative: Gen: Non-toxic, comfortable and interactive Neuro: Alert and oriented x3 Psych: Good mood and affect. Good insight and understanding into condition. Chest: Non-labored breathing Abdomen: Soft, nondistended and nontender Objective Last Vital Signs Temp 99.1 F 06/26/24 08:10 Pulse 86 06/26/24 08:31 Resp 15 06/26/24 08:31 BP 113/57 L 06/26/24 08:31 Pulse Ox 95 06/26/24 08:31 Laboratory Results - last 24 hr 06/24/24 06/26/24 13:13 06:10 WBC 11.72 H RBC 2.43 L Hgb 7.5 L Hct 22.2 L MCV 91 MCH 30.9 MCHC 33.8 RDW 15.5 H Plt Count 370 MPV 10.7 Reticulocyte % (Auto) 3.5 H Immature Gran % 0.4 Neutrophils % 57.2 Lymphocytes % 30.5 Monocytes % 6.6 Eosinophils % 4.4 Basophils % 0.9 Nucleated RBC % 0.0 Absolute Neutrophils 6.70 Absolute Lymphocytes 3.57 H Absolute Monocytes 0.77 Absolute Eosinophils 0.52 Absolute Basophils 0.11 Sodium 138 Potassium 4.2 Chloride 110 H Carbon Dioxide 21.3 Anion Gap 6.7 BUN 30 H Creatinine 1.4 H Est GFR (CKD-EPI 2020) 53.07 Glucose 111 H Calcium 8.0 L Total Bilirubin 0.4 AST 20 ALT 19 Alkaline Phosphatase 36 L Total Protein 5.2 L Albumin 2.4 L ABO/Rh O Positive Antibody Screen NEGATIVE Crossmatch See Detail Time Spent with Patient Time Spent with Patient: <25 minutes Time was spent: preparing to see the patient(eg.review tests), obtaining and/or reviewing separately otained hiistory, ordering medications,tests, procedures, referring, communicating with other health career center advisor (I discussed with the hospitalist team in person), indepentently interpreting results, counseling the patient and care coordination
--- NOTE | 2024-06-26 11:11 | PGE_ITS ---
Date of Service Date of service: 06/26/24 Time of Service: 11:11 Assessment and Plan Assessment and plan (1) Symptomatic anemia: Status: Acute Assessment and plan: pt is getting 2 units prbc in ed. Recheck cbc in am. Monitor vitals. Will place pt in the ICU. Pt did have a good response to transfusions but has dropped a gram since then. I will check a reticulocyte count as well 06/26/24 Endoscopy does not show active bleeding. Pt has stable Hg over last 48 hours. If Hg remains stable, will dc in am FINDINGS: D2/D3 = normal, no evidence of ongoing bleeding D1/bulb = anterior ulcer. Not actively bleeding. No visible vessel in the base. Cold forceps biopsies taken at the periphery. Pylorus = normal Antrum = normal appearance, no ulcers or inflammation, cold forceps biopsies were taken to rule out H. pylori routinely Body = normal appearance - except that there is carolynn bile pooled in the stomach body consistent with the diagnosis of bile reflux Fundus = normal, no polyps, intact fundoplication Cardia = normal Hiatus = no obvious hiatal hernia, fundoplication adequately tight Distal esophagus = no inflammation, no esophagitis, no Nascimento's, no stricture. Mid esophagus = normal Proximal esophagus/hypopharynx/vocal cords = normal SURVEILLANCE-INTERVAL/FOLLOW-UP: Medical treatment of peptic ulcer disease. Follow-up with PCP. Repeat EGD in 3 months can be considered to ensure resolution of the ulcer. (2) Acute blood loss anemia (ABLA): Status: Acute Assessment and plan: as above and the addition of protonix 40mg po bid 06/25/24 Started on sulcrafate, cw PPI (3) Tachycardia: Status: Acute Assessment and plan: as above resolving as of 06/26/24 (4) GIB (gastrointestinal bleeding): Status: Chronic Assessment and plan: Consult to GS placed per discussion with ED. Add hpylori and hemoccult check stool. (5) Elevated BUN: Status: Acute Assessment and plan: Elevated Bun/Cr ratio most likely 2/2 upper GIB. (6) Hypomagnesemia: Status: Acute Assessment and plan: replace (7) Elevated MCV: Status: Acute Assessment and plan: check b12/folate/fe/tibc. Concern for mixed disorder 06/25/24 labs are reassuring, low normal iron level (8) History of DVT (deep vein thrombosis): Status: Acute Assessment and plan: scd currently 2/2 concern for bleeding. Pt would benefit from evaluation of hypercoagulable status (9) Peptic anastomotic ulcer: Status: Acute Assessment and plan: Will start on triple therapy consisting of amoxicillin and clarithromycin and PPI Plan is for dc tomorrow (10) Contracture of left index finger: Status: Acute Assessment and plan: Pt does complain of left index finger pain. Pt states that he believes a spider bit him appx 6 weeks ago. Phalens test and Tinnel test was negative. No sign of infection or abrasion. Would follow up with PCP if symptoms don't resolve in 4-6 weeks Subjective Subjective Interval history since last seen: Pt seen and examined in his room. POC d/w pt as well as with bedside nurse during ICU huddle. Procedure note from GS also reviewed Exam Narrative Exam Narrative: Gen: Non-toxic, comfortable and interactive Neuro: Alert and oriented x3 Psych: Good mood and affect. Good insight and understanding into condition. Chest: Non-labored breathing Abdomen: Soft, nondistended and nontender Objective Last Vital Signs Temp 37.3 C 06/26/24 08:10 Pulse 81 06/26/24 11:01 Resp 15 06/26/24 11:01 BP 94/57 L 06/26/24 11:01 Pulse Ox 94 06/26/24 11:01 Laboratory Results - last 24 hr 06/24/24 06/26/24 13:13 06:10 WBC 11.72 H RBC 2.43 L Hgb 7.5 L Hct 22.2 L MCV 91 MCH 30.9 MCHC 33.8 RDW 15.5 H Plt Count 370 MPV 10.7 Reticulocyte % (Auto) 3.5 H Immature Gran % 0.4 Neutrophils % 57.2 Lymphocytes % 30.5 Monocytes % 6.6 Eosinophils % 4.4 Basophils % 0.9 Nucleated RBC % 0.0 Absolute Neutrophils 6.70 Absolute Lymphocytes 3.57 H Absolute Monocytes 0.77 Absolute Eosinophils 0.52 Absolute Basophils 0.11 Sodium 138 Potassium 4.2 Chloride 110 H Carbon Dioxide 21.3 Anion Gap 6.7 BUN 30 H Creatinine 1.4 H Est GFR (CKD-EPI 2020) 53.07 Glucose 111 H Calcium 8.0 L Total Bilirubin 0.4 AST 20 ALT 19 Alkaline Phosphatase 36 L Total Protein 5.2 L Albumin 2.4 L ABO/Rh O Positive Antibody Screen NEGATIVE Crossmatch See Detail Time Spent with Patient Time Spent with Patient: 25-34 minutes Time was spent: preparing to see the patient(eg.review tests), obtaining and/or reviewing separately otained hiistory, ordering medications,tests, procedures, referring, communicating with other health hearing healthcare practitioner, indepentently interpreting results, counseling the patient and care coordination
--- NOTE | 2024-06-26 11:28 | W.ANESPOSTOP ---
Postoperative Evaluation Date, Time and Location Date Performed: 06/26/24 Time Performed: 11:28 Patient Location: Intensive Care Unit Vital Signs Most Recent Imported Vital Signs: Most Recent Vital Signs Temp Pulse Resp BP Pulse Ox 37.3 C 81 15 94/57 L 94 06/26/24 08:10 06/26/24 11:01 06/26/24 11:01 06/26/24 11:01 06/26/24 11:01 Pain Score Most Recent Pain Score: Most Recent Pain Score Pain Level 0 06/26/24 1128 Assessment Mental Status: Awake (Alert & Oriented to Patient Baseline) Airway and Respiratory Function: Patent airway with normal (patient baseline) respiratory exam Cardiovascular Function: Hemodynamically Stable Hydration Status: Adequately Hydrated Nausea & Vomiting: No Nausea or Vomiting Pain: Pt. Denies Any Pain Peripheral Nerve Block: Patient did not receive a nerve block
--- NOTE | 2024-06-26 12:55 | PHA.REVIEW2 ---
Pharmacy Admission Review Admission Clinical Review Admission Pharmacy Review: Contracture of left index finger (Acute) Peptic anastomotic ulcer (Acute) History of DVT (deep vein thrombosis) (Acute) Elevated MCV (Acute) Hypomagnesemia (Acute) Elevated BUN (Acute) Tachycardia (Acute) Acute blood loss anemia (ABLA) (Acute) Symptomatic anemia (Acute) No Known Allergies Allergy (Verified 06/24/24 11:39) Resuscitation Status Full Code Height 5 ft 9 in Weight 101.7 kg Comments Comments/Follow Ups: Per provider switching from ICU to MS status with possible discharge tomorrow. Watch for addition of any QTc prolonging medications Pharmacy Admission Review Renal Dosing Renal Dosing: BUN 30 mg/dL (7-18) H 06/26/24 06:10 Creatinine 1.4 mg/dL (0.70-1.30) H 06/26/24 06:10 Medications needing adjustments: Reviewed (CrCl 55.2 mL/min, BUN decreased from 64) List of meds needing interventions: Current medications are okay Anticoagulation Anticoagulation: Hgb 7.5 g/dL (13.5-17.5) L 06/26/24 06:10 Hct 22.2 % (40.0-50.0) L 06/26/24 06:10 Plt Count 370 10^3/uL (130-400) 06/26/24 06:10 INR 1.1 (0.9-1.1) 06/24/24 10:39 Creatinine 1.4 mg/dL (0.70-1.30) H 06/26/24 06:10 DVT Prophylaxis: Reviewed (SCDs - GIB, Hgb decreased from 7.6) Relevant Labs Relevant Labs: Sodium 138 mmol/L (136-145) 06/26/24 06:10 Potassium 4.2 mmol/L (3.5-5.1) 06/26/24 06:10 Chloride 110 mmol/L (98-107) H 06/26/24 06:10 Magnesium 1.6 mg/dL (1.8-2.4) L 06/24/24 11:39 Electrolytes, C-Reactive P, ESR: Reviewed DM Control DM Control: Glucose 111 mg/dL (74-106) H 06/26/24 06:10 Finger Stick Blood Glucose 111 Finger Stick Blood Glucose 111 Finger Stick Blood Glucose 116 Finger Stick Blood Glucose 116 DM Control: Reviewed Insulin Dosing, Diabetic Medication: No diagnosis listed in chart but does take metformin at home. Received iohexol on 06/24 at at 1409. Could restart this afternoon. Cardiac Review Cardiac Review: Troponin I 6 ng/L (<or=76) 06/24/24 14:08 Blood Pressure 112/66 1231 Blood Pressure 106/61 1201 Blood Pressure 99/57 1131 Blood Pressure 94/60 1121 Blood Pressure 94/57 1101 Blood Pressure 91/60 1031 Blood Pressure 93/60 1022 Blood Pressure 85/57 1001 Blood Pressure 99/60 0930 Blood Pressure 94/62 0929 Blood Pressure 96/63 0927 Blood Pressure 96/63 0925 Blood Pressure 96/63 0922 Blood Pressure 113/57 0831 Blood Pressure 104/61 0828 Blood Pressure 104/61 0801 Blood Pressure 96/58 0737 Blood Pressure 93/55 0731 BP, HR, EF%: Reviewed (HR WNL) List meds needing interventions: Has order for lisinopril 10mg daily QTc Review QTc: Reviewed (512 from 06/24/24) List meds needing interventions: Current medications okay, watch for addition of any QTc prolonging medications IV to PO Switch IV Medications: Reviewed (No IV orders) Home Meds Home Med List reviewed: Reviewed Relevent Home Meds Not ordered & why?: metformin (on hold) and naproxen (PRN) Current Meds Current Medication Order Review: Intervened Comments: Changed sucralfate order from q6h to AC + HS Discontinued phenylephrine infusion order - verified with provider (was paused yesterday at 1600 - no longer needed) Pharmacy Antibiotic Review Relevant Labs: WBC 11.72 10^3/uL (4.4-10.8) H 06/26/24 06:10 Temperature 37.4 C 1130 Temperature 37.3 C 0810 Temperature 37.5 C 0631 Temperature 37.9 C 0401 Pharmacy Antibiotic Activity: Reviewed, no change Comments: Patient was started on PO Augmentin and clarithromycin, day 1, for possible H. Pylori (here with ulcer/GIB). Patient does have order for PPI (pantoprazole). WBC decreased from 15.95, slightly elevated temperature this morning at 0401. Comments Comments/Follow Ups: Per provider switching from ICU to MS status with possible discharge tomorrow. Watch for addition of any QTc prolonging medications
--- NOTE | 2024-06-26 16:30 | W.PC.ACHO ---
Registration Status: Primary Language: Preferred Language: ED Information & Data Chief Complaint [id number] 06/24/24 11:37 Chief Complaint [id number] 06/24/24 11:30 Triage Note Pt had witnessed syncopal 06/24/24 11:30 episode while holding onto bunk at half-way. Nurse and officer assisting when EMS arrived. Reported hit the back of his head. EMS reported he was hypotensive on arrival, no reported seizure activity, Reported he felt faint and weak when he came to. Reported he felt dizzy before this occurred. Denies CP or SOB, SHAIKH or vision changes. (Last Updated 06/26/24 @ 11:30 by Gwen Hong) History of esophagogastroduodenoscopy (EGD) (~06/2024) Most Recent Vital Signs Temperature 37 C 06/26/24 15:17 Temperature Source Temporal Artery Scan 06/26/24 15:17 Pulse 80 06/26/24 16:01 Pulse 80 06/26/24 16:01 Respiratory Rate 12 06/26/24 16:01 Respiratory Effort Normal, Non-Labored 06/24/24 11:47 Respiratory Depth Normal 06/24/24 11:47 Respiratory Pattern Normal 06/24/24 11:47 Blood Pressure 113/58 L 06/26/24 16:01 Blood Pressure Mean 74 06/26/24 16:01 Blood Pressure Position Supine 06/24/24 11:30 Pulse Oximetry 95 06/26/24 16:01 Oxygen Delivery Method Room Air 06/26/24 15:17 Oxygen Flow Rate 0 06/26/24 15:17 Pain Level 5 06/26/24 08:10 Comment Provider notified of low BP: pt receiving fluids at this time. 06/25/24 04:05 Comment PRE BLOOD 06/24/24 15:01 Allergies No Known Allergies Allergy (Verified 06/24/24 11:39) Active Medications Generic Name Dose Route Start Last Admin Trade Name Freq PRN Reason Stop Dose Admin Acetaminophen 0 mg 06/24/24 15:58 06/26/24 11:24 Acetaminophen 325 Mg Tab PO 325 mg Q4H PRN PRN Administration Escitalopram Oxalate 20 mg 06/25/24 08:30 06/26/24 07:45 Escitalopram 20 Mg Tab PO 20 mg DAILY KALYAN Administration Lisinopril 10 mg 06/25/24 08:30 06/26/24 08:35 Lisinopril 10 Mg Tab PO Not Given DAILY KALYAN Magnesium Chloride 64 mg 06/24/24 20:00 06/26/24 07:45 Magnesium Chloride 64 Mg Tabcr PO 64 mg BID KALYAN Administration Pantoprazole Sodium 40 mg 06/24/24 20:00 06/26/24 07:45 Pantoprazole 40 Mg Tabcr PO 40 mg BID@0730,2000 KALYAN Administration Sucralfate 1 gm 06/26/24 11:30 06/26/24 11:23 Sucralfate 1 Gm Tab PO 1 gm AC & HS KALYAN Administration Tamsulosin HCl 0.8 mg 06/25/24 17:30 06/26/24 07:45 Tamsulosin 0.4 Mg Capcr PO 0.8 mg DAILY KALYAN Administration IV IV Catheter Type [Right Upper Saline Lock arm] IV Catheter Type [Right Saline Lock Antecubital] IV Catheter Gauge [Right Upper 20 arm] IV Catheter Gauge [Right 18 Antecubital] Diagnostics 06/26/24 06/24/24 Range/Units 06:10 13:13 WBC 11.72 H (4.4-10.8) 10^3/uL RBC 2.43 L (4.36-5.78) 10^6/uL Hgb 7.5 L (13.5-17.5) g/dL Hct 22.2 L (40.0-50.0) % MCV 91 (80-95) fL MCH 30.9 (27.0-33.0) pg MCHC 33.8 (32.0-36.0) % RDW 15.5 H (11.8-14.1) % Plt Count 370 (130-400) 10^3/uL MPV 10.7 (8.0-11.0) fL Reticulocyte % (Auto) 3.5 H (0.5-2.4) % Immature Gran % 0.4 % Neutrophils % 57.2 % Lymphocytes % 30.5 % Monocytes % 6.6 % Eosinophils % 4.4 % Basophils % 0.9 % Nucleated RBC % 0.0 (0.0-0.3) % Absolute Neutrophils 6.70 (1.2-6.7) 10^3/uL Absolute Lymphocytes 3.57 H (1.2-3.4) 10^3/uL Absolute Monocytes 0.77 (0.1-0.8) 10^3/uL Absolute Eosinophils 0.52 (0.0-0.7) 10^3/uL Absolute Basophils 0.11 (0.0-0.2) 10^3/uL Sodium 138 (136-145) mmol/L Potassium 4.2 (3.5-5.1) mmol/L Chloride 110 H (98-107) mmol/L Carbon Dioxide 21.3 (21.0-32.0) mmol/L Anion Gap 6.7 (3-11) mmol/L BUN 30 H (7-18) mg/dL Creatinine 1.4 H (0.70-1.30) mg/dL Est GFR (CKD-EPI 2020) 53.07 (mL/min/1.73m2) Glucose 111 H (74-106) mg/dL Calcium 8.0 L (8.5-10.1) mg/dL Total Bilirubin 0.4 (0.2-1.0) mg/dL AST 20 (15-37) U/L ALT 19 (16-63) U/L Alkaline Phosphatase 36 L (46-116) U/L Total Protein 5.2 L (6.4-8.2) g/dL Albumin 2.4 L (3.4-5.0) g/dL ABO/Rh O Positive Antibody Screen NEGATIVE Crossmatch See Detail [id number] Documentation Fingerstick Glucose Start: 06/25/24 22:45 Freq: Status: Complete Protocol: Activity Type Activity Date Activity User E-sign Co-sign Detail Recorded Client Recorded Date Recorded By Document 06/26/24 06:10 BKG DAEMON(5) NVT-BG05 06/26/24 06:10 BKG DAEMON(6) Fingerstick Glucose Start: 06/26/24 08:04 Freq: .Q6H Status: Complete Protocol: Activity Type Activity Date Activity User E-sign Co-sign Detail Recorded Client Recorded Date Recorded By Document 06/26/24 11:53 BKG DAEMON(7) NVT-BG05 06/26/24 11:54 BKG DAEMON(8) Intake and Output - 24 Hour Total 06/24/24 11:26 thru 06/26/24 15:20 Intake Total 9675.742 Output Total 5880 Balance 3795.742 Weight 101.7 kg Intake: IV 8019.742 Oral 717 Blood Product 839 Rbc Leuko Reduced Unit 286 [id number] Rbc Leuko Reduced Unit 300 [id number] Rbc Leuko Reduced Unit 253 [id number] Other 100 Rbc Leuko Reduced Unit 100 [id number] Output: Urine 5880 Other: Urine Color Pale Urine Appearance Clear Urine Odor Normal Comment Mixed with stool. Patient states he is unable to void completely. He reports this is not new for him. Stool Size Small Stool Characteristics Soft Black Falls Risk Assessment History of Falls No History 06/24/24 11:47 Contributing Factors No Factors 06/24/24 11:47 Ambulatory Aids Independent 06/24/24 11:47 Tubes/Lines None 06/24/24 11:47 Gait Evaluation No gait disturbance 06/24/24 11:47 Cognition No cognitive impairment 06/24/24 11:47 Fall Total Score 0 06/24/24 11:47 Level of Risk Standard/Low Risk 06/24/24 11:47 Problems (Last Reviewed 07/13/21 @ 15:24 by Mehdi Melendez MD) Contracture of left index finger (Acute) Peptic anastomotic ulcer (Acute) History of DVT (deep vein thrombosis) (Acute) Elevated MCV (Acute) Hypomagnesemia (Acute) Elevated BUN (Acute) GIB (gastrointestinal bleeding) (Chronic) Tachycardia (Acute) Acute blood loss anemia (ABLA) (Acute) Symptomatic anemia (Acute) v v v v v v v v v Sending and/or Receiving Nurses: Please use comment section below to note any information pertinent to the patient hand-off not included above. Information / Comments: Report received from:boubacar at 2038
[2024-06-26] MEDS: Amoxicillin 875/Clav. 125 TAB PO (20:50)
[2024-06-26] MEDS: Normal Saline Flush 10 ML SYR IVP (20:50)
[2024-06-26] MEDS: Clarithromycin 500 MG TAB PO (20:50)
[2024-06-27 06:48] LABS: Abs Immature Grans 0.05 10^3/uL (0.0-0.06); Absolute Basophil Count 0.13 10^3/uL (0.0-0.2); Absolute Eosinophil Count 0.65 10^3/uL (0.0-0.7); Absolute Lymphocyte Count 3.42 10^3/uL (1.2-3.4); Absolute Monocyte Count 0.98 10^3/uL (0.1-0.8); Basophils % 1.1 %; Eosinophils % 5.3 %; HCT 25.7 % (40.0-50.0); HGB 8.8 g/dL (13.5-17.5); Immature Grans % 0.4 %; MCH 31.2 pg (27.0-33.0); MCHC 34.2 % (32.0-36.0); MCV 91 fL (80-95); MPV 10.8 fL (8.0-11.0); Neutrophils % 57.2 %; Platelet Count 453 10^3/uL (130-400); RBC 2.82 10^6/uL (4.36-5.78); RDW 15.4 % (11.8-14.1); RDW-SD 49.8 fL; WBC 12.23 10^3/uL (4.4-10.8)
[2024-06-27 07:22] LABS: AST 22 U/L (15-37); Albumin 2.8 g/dL (3.4-5.0); Alkaline Phosphatase 46 U/L (46-116); Anion Gap 9.6 mmol/L (3-11); BUN 13 mg/dL (7-18); Bilirubin, Total 0.5 mg/dL (0.2-1.0); CO2 22.4 mmol/L (21.0-32.0); CREATININE 1.2 mg/dL (0.70-1.30); Calcium 8.5 mg/dL (8.5-10.1); Chloride 108 mmol/L (98-107); Estimated GFR 63.85 (mL/min/1.73m2); Glucose 109 mg/dL (74-106); Potassium 3.9 mmol/L (3.5-5.1); Sodium 140 mmol/L (136-145); Total Protein 6.5 g/dL (6.4-8.2)
[2024-06-27 07:31] VITALS: BP 129/70; PULSE 96; RESP 18; TEMP 36.6; O2SAT 94
[2024-06-27 07:57] LABS: ALT 26 U/L (16-63)
[2024-06-27] MEDS: Amoxicillin 875/Clav. 125 TAB PO (09:02)
[2024-06-27] MEDS: Sucralfate 1 GM TAB PO (09:02)
[2024-06-27] MEDS: Lisinopril 10 MG TAB PO (09:03)
[2024-06-27] MEDS: Tamsulosin 0.4 MG CAPCR 0.8 MG PO (09:03)
[2024-06-27] MEDS: Escitalopram 20 MG TAB PO (09:04)
[2024-06-27] MEDS: Magnesium Chloride 64 MG TABCR PO (09:04)
[2024-06-27] MEDS: Pantoprazole 40 MG TABCR PO (09:04)
[2024-06-27] MEDS: Clarithromycin 500 MG TAB PO (09:05)
[2024-06-27] MEDS: Normal Saline Flush 10 ML SYR IVP (09:07)
--- NOTE | 2024-06-27 09:12 | CMDISCH_ITS ---
Date of service: 06/27/24 Time of Service: 09:12 LACE Index Scoring Tool Questions: Length of Stay (in days): 3 Was the patient admitted via the E.D.?: Yes E.D. Visits: 1 Answers: Total Score: 7 Risk of Readmission: Low Risk Care Management Discharge Plan Reason for Hospitalization: GIB Discharge Plan: José Manuel will be discharged back to [facility]. He will follow up with his facility provider and plan of care and transport with corrections staff. Patient/Family Education Needs: Review discharge instructions, discuss [facility] Health Related Social Needs: No Data to Display
--- NOTE | 2024-06-27 09:16 | W.PM.DS.N ---
Date of service: 06/27/24 Time of Service: 09:16 DS: Diagnosis Discharge Diagnosis (1) Symptomatic anemia: Status: Acute (2) Acute blood loss anemia (ABLA): Status: Acute (3) Tachycardia: Status: Acute (4) GIB (gastrointestinal bleeding): Status: Chronic (5) Elevated BUN: Status: Acute (6) Hypomagnesemia: Status: Acute (7) Elevated MCV: Status: Acute (8) History of DVT (deep vein thrombosis): Status: Acute (9) Peptic anastomotic ulcer: Status: Acute (10) Contracture of left index finger: Status: Acute Discharge Plan Disposition Patient Disposition: [facility] Condition: Good Discharge Details Reason For Visit: GIB Admit Date/Time: 06/24/24 15:58 Admit Provider: Clement Regalado Attending Provider: Clement Regalado Primary Care Provider: Chrissy Holguin Hospital Course Hospital Course: Patient initially presented with signs and symptoms of an acute upper GI bleed for which she received a total of 2 units of packed red blood cells in the emergency department and has has since had stable hemoglobin levels. He also got up upper endoscopy by general surgery which showed nonbleeding ulcerative disease. Patient had diet advanced and tolerated well, and given stable hemoglobin it was determined that he was stable for discharge home. Patient also complained of pain in his left hand after experiencing a spider bite. On exam of the hand there were no signs of infection. Recommendations would be for ibuprofen however, given recent GI bleed and ulcerative disease, would recommend continuing with Tylenol. Home Meds and New Rx's Prescriptions: New sucralfate 1 gram Tablet 1 g PO AC & HS Qty: 90 0RF tamsulosin 0.4 mg Capsule 0.8 mg PO DAILY Qty: 90 0RF pantoprazole 40 mg Tablet,Delayed Release (Dr/Ec) 40 mg PO BID@07,1999 Qty: 90 0RF Continued metformin 1,000 mg Tablet 1,000 mg PO BID acetaminophen 500 mg Tablet 500 mg PO BID PRN lisinopril 10 mg Tablet 10 mg PO DAILY escitalopram oxalate 20 mg Tablet 20 mg PO DAILY dulaglutide 1.5 mg/0.5 mL Pen Injector 1.5 mg SUBCUT DIRECTED Rx Instructions: Q Discontinued naproxen 500 mg tablet 500 mg PO BID PRN Discharge Instructions Activity:: Activity as Tolerated Equipment/Supplies:: No Equipment Needed Diet:: As Tolerated Discharge Orders Discharge Orders: Discharge Order (Routine); Ordered 06/27/24 Ordered By: Jono Connell DS: Summary Time Spent with Patient providing and/or coordinating discharge services: Greater than 30 minutes Status at Discharge Functional status at discharge: independent ambulation Overall status at discharge: patient is back to baseline Mental Status: mental status grossly normal Speech and Movement: speech and movement normal Mood: congruent mood Affect: normal affect Quality:SDOH Health Related Social Needs: No Data to Display Exam Narrative Exam Narrative: well appearing older gentleman laying in bed in no acute distress, AOx4, heart RRR, lungs CTAB, abdomen soft, non-tender, non-distended, left hand with negative phalens and tinnel, no erythema or warmth, mild contracture of first finger Psych Mental Status: mental status grossly normal Speech and Movement: speech and movement normal Mood: congruent mood Affect: normal affect DS: Data Vitals/I&O Vitals and I&O: Vital Signs Temperature 97.9 F 06/27/24 07:31 Temperature Source Temporal Artery Scan 06/27/24 07:31 Pulse 96 H 06/27/24 07:31 Pulse 80 06/26/24 16:01 Respiratory Rate 18 06/27/24 07:31 Respiratory Effort Normal, Non-Labored 06/24/24 11:47 Respiratory Depth Normal 06/24/24 11:47 Respiratory Pattern Normal 06/24/24 11:47 Blood Pressure 129/70 06/27/24 07:31 Blood Pressure Mean 89 06/27/24 07:31 Blood Pressure Position Supine 06/24/24 11:30 Pulse Oximetry 94 06/27/24 07:31 Oxygen Delivery Method Room Air 06/27/24 07:31 Oxygen Flow Rate 0 06/27/24 07:31 Pain Level 0 06/27/24 07:31 Comment Notifying RN on pulse 06/27/24 07:31 Comment PRE BLOOD 06/24/24 15:01 Intake & Output 06/26/24 06/27/24 06/27/24 17:59 05:59 17:59 Intake Total 1527 / 1527 310 / 1837 Output Total 2049 3250 / 5300 200 / 200 Balance -523 / -523 -2940 / -3463 -200 / -200 Weight 224 lb 3.362 oz 218 lb 14.704 oz Intake: IV 1000 / 1000 10 / 1010 Oral 527 / 527 300 / 827 Output: Urine 2049 / 2049 3250 / 5300 200 / 200 Other: Urine Color Pale Pale Yellow Yellow Urine Appearance Clear Clear Clear Stool Size Moderate Stool Characteristics Soft Formed Data Completed and Pending Labs on day of discharge: Labs from last 24 hours 06/27/24 05:48: WBC 12.23 H, RBC 2.82 L, Hgb 8.8 L, Hct 25.7 L, MCV 91, MCH 31.2, MCHC 34.2, RDW 15.4 H, Plt Count 453 H, MPV 10.8, Immature Gran % 0.4, Neutrophils % 57.2, Lymphocytes % 28.0, Monocytes % 8.0, Eosinophils % 5.3, Basophils % 1.1, Nucleated RBC % 0.0, Absolute Neutrophils 7.00 H, Absolute Lymphocytes 3.42 H, Absolute Monocytes 0.98 H, Absolute Eosinophils 0.65, Absolute Basophils 0.13, Sodium 140, Potassium 3.9, Chloride 108 H, Carbon Dioxide 22.4, Anion Gap 9.6, BUN 13, Creatinine 1.2, Est GFR (CKD-EPI 2020) 63.85, Glucose 109 H, Calcium 8.5, Total Bilirubin 0.5, AST 22, ALT 26, Alkaline Phosphatase 46, Total Protein 6.5, Albumin 2.8 L PFSH All Active Problems (Updated 06/27/24 @ 09:16 by Jono Connell MD) Contracture of left index finger (Acute) Peptic anastomotic ulcer (Acute) History of DVT (deep vein thrombosis) (Acute) Elevated MCV (Acute) Hypomagnesemia (Acute) Elevated BUN (Acute) GIB (gastrointestinal bleeding) (Chronic) Tachycardia (Acute) Acute blood loss anemia (ABLA) (Acute) Symptomatic anemia (Acute) Surgical History (Updated 06/26/24 @ 11:30 by Gwen Hong) History of esophagogastroduodenoscopy (EGD) (~06/2024) Social History Smoking/Tobacco Use Status: Never Smoking risk assessment performed?: Yes Alcohol Intake: current Substance use type: does not use Housing: other Time Spent with Patient Time Spent with Patient: <45 minutes Time was spent: preparing to see the patient(eg.review tests), obtaining and/or reviewing separately otained hiistory, ordering medications,tests, procedures, referring, communicating with other health aged or disabled carer, indepentently interpreting results, counseling the patient and care coordination
[2024-06-27 13:33] LABS: Helicobacter pylori Ag, Feces Negative (Negative)
--- NOTE | 2024-06-29 14:51 | CMDISCH_ITS ---
Date of service: 06/29/24 Time of Service: 14:51 LACE Index Scoring Tool Questions: Length of Stay (in days): 2 Was the patient admitted via the E.D.?: Yes E.D. Visits: 2 Answers: Total Score: 7 Risk of Readmission: Low Risk Care Management Discharge Plan Reason for Hospitalization: orthostasis Discharge Plan: [facility] He will follow up with his facility provider and plan of care and transport with [facility] Patient/Family Education Needs: Review discharge instructions, limitations, follow up plan and discuss Ask Me Three [facility] Health Related Social Needs: No Data to Display
== END 2024-06-27 11:07 | DRG 378 ==
LOC: ER 17:40 → ICU 18:29 → MS 06-27 06:45 → ICU 06-29 03:46 → MS 06-29 03:46
PROVIDERS: Student in an Organized Health Care Education/Training Program; Admitting Provider Hospitalist; Emergency Provider Emergency Medicine; PCP Nurse Practitioner Adult Health; Responsible Provider Family Medicine; Visit Provider Hospitalist
PROC: 0DJ68ZZ Inspection of Stomach, Via Natural or Artificial Opening Endoscopic (ICD-10-PCS; CPT 43235; principal; 2024-06-26 09:00)
DX: R00.0 Tachycardia, unspecified; D62 Acute posthemorrhagic anemia; K26.4 Chronic or unspecified duodenal ulcer with hemorrhage; E83.42 Hypomagnesemia; R55 Syncope and collapse; E87.5 Hyperkalemia; I95.89 Other hypotension; E86.1 Hypovolemia; R33.9 Retention of urine, unspecified; M20.092 Other deformity of left finger(s); D75.89 Other specified diseases of blood and blood-forming organs; Z79.84 Long term (current) use of oral hypoglycemic drugs; Z86.718 Personal history of other venous thrombosis and embolism; Z79.1 Long term (current) use of non-steroidal anti-inflammatories (NSAID); Z79.85 Long-term (current) use of injectable non-insulin antidiabetic drugs; Z79.899 Other long term (current) drug therapy; T63.301A Toxic effect of unspecified spider venom, accidental (unintentional), initial encounter; K31.9 Disease of stomach and duodenum, unspecified
CPT/HCPCS: 43239; 00123; 36415; 36430; 71275; 74177; 80048; 80053; 82550; 85027; 86850; 86900; 86901; 86920; 87338; 88305; 93005; 96361; 96374; 96375; 99291; 70450; 81003; 82607; 82746; 83540; 83550; 83735; 84484; 85014; 85018; 85025; 85045; 85379; 85610; 86880; 93010; 99222; 99232; 99239; J0612; J1815; J2003; J2371; J2470; J2704; J3490; P9016

== ENCOUNTER 2024-06-27 12:22 | Observation (INO) | payer OTHER, SELFPAY ==
[2024-06-27] VITALS (41 sets, daily range): BP systolic 95–144; BP diastolic 51–74; PULSE 108–130; RESP 0–23; TEMP 37.1–37.4; O2SAT 94–99
--- NOTE | 2024-06-27 12:15 | RT.EKG_ITS ---
APPROVED REPORT Exam: Resting ECG Reason for Exam: syncope Patient Location: E HR:124 bpm ECG Measurements Heart Rate 124 AXIS TX 120 P -90 QRSd 89 QRS -7 QT 350 T 61 QTc 503 Conclusion Sinus or ectopic atrial tachycardia...P axis (-45,135), rate> 99 Low voltage, extremity leads...all extremity leads <0.5mV Prolonged QT interval...QTc >500mS No Occlusion ME
--- NOTE | 2024-06-27 12:17 | W.ED.GENAD ---
Discharge Plan Discharge Details Chief Complaint: Dizzy/Sync Clinical Impression: Prolonged QT interval, Near syncope Primary Care Provider: Chrissy Holguin ED Provider: José Manuel Godinez [place] Meds and New Rx's Prescriptions: No Action sucralfate 1 gram Tablet 1 g PO AC & HS Qty: 90 0RF tamsulosin 0.4 mg Capsule 0.8 mg PO DAILY Qty: 90 0RF metformin 1,000 mg Tablet 500 mg PO BID acetaminophen 500 mg Tablet 500 mg PO BID lisinopril 10 mg Tablet 10 mg PO DAILY escitalopram oxalate 20 mg Tablet 20 mg PO DAILY dulaglutide 1.5 mg/0.5 mL Pen Injector 1.5 mg SUBCUT DIRECTED Rx Instructions: Q sodium fluoride-pot nitrate [PreviDent 5000 Enamel Protect] 1.1-5 % paste 1 applic dental BID Rx Instructions: brush teeth using soft brush for at least 1 min ; rinse mouth thoroughly and spit out HPI General Date/Time Provider Initiated Documentation: 06/27/24 12:26. HPI Narrative: MDM He was diagnosed with an upper GI bleed 2 days ago and received 3 units of blood. He was released from [facility] this morning. He experienced dizziness and lightheadedness upon standing, with a systolic blood pressure in the 80s and a heart rate in the 160s, which decreased to the 120s with sinus tachycardia. His blood pressure stabilized at 110/70s and heart rate in the 110s to 120s when kept flat. He reported black or bloody stools this morning. A type and screen, CBC, basic labs, and an EKG will be conducted. Pantoprazole will be administered at 8 mg. 4 PM Patient's repeat H&H returned was stable. He is still tachycardic with rates into the 1 teens despite 2 L of IV fluids. He did have a large bowel movement which was brown and black. Given his recent EGD I am suspicious that he may still be bleeding and as result I spoke to Dr. Connell who graciously agreed to set the patient for hospitalization. HPI This is a 73-year-old male with history of duodenal ulcer postop day 1 status post EGD right emergency department via EMS following a near syncopal episode. He was recently diagnosed with an upper gastrointestinal bleed, which necessitated the administration of 3 units of blood. This morning, he was discharged from [facility]. Upon arrival at the facility, he experienced dizziness and lightheadedness, prompting a check of his vital signs. His systolic blood pressure was recorded in the 80s, and his heart rate was in the 160s. He was administered 600 cc of fluid. When maintained in a supine position, his blood pressure stabilizes at 110/70s, and his heart rate remains between 110s to 120s. However, upon standing, he exhibits significant orthostatic drops. He reported experiencing black or bloody stools prior to his departure this morning. He also reported feeling lightheaded and dizzy when transitioning from a wheelchair to a van for transport but did not lose consciousness. He is not experiencing any abdominal pain. Exam General: Pale-appearing in no acute distress speaking in complete sentences. Head: Normocephalic, atraumatic. Eye: Extraocular eye movements intact. No conjunctival injection. No scleral icterus. Ear, nose, mouth, throat: Grossly normal inspection. Normal voice, handling secretions normally. Neck: Trachea midline. Cardiovascular: Well-perfused distal extremities. Respiratory: Nonlabored respiration. Clear lungs bilaterally. Gastrointestinal: Nondistended abdomen. Soft. Nontender. Musculoskeletal: No edema. Moving all 4 extremities spontaneously. Skin: Normal for age and race, grossly normal temperature and turgor. No acute rash. Neurologic: Alert and appropriate, no apparent acute deficits. Psychiatric: Mood and manner are appropriate. Grooming and personal hygiene are appropriate. Related Data Home Medications ?Medication ?Instructions ?Recorded ?Confirmed acetaminophen 500 mg tablet 500 mg PO BID 07/13/21 06/27/24 dulaglutide 1.5 mg/0.5 mL 1.5 mg subcut DIRECTED 07/13/21 06/27/24 subcutaneous pen injector escitalopram oxalate 20 mg tablet 20 mg PO DAILY 07/13/21 06/27/24 lisinopril 10 mg tablet 10 mg PO DAILY 07/13/21 06/27/24 metformin 1,000 mg tablet 500 mg PO BID 07/13/21 06/27/24 sodium fluoride 1.1 %-potassium 1 applic dental BID 06/27/24 06/27/24 nitrate 5 % dental paste (PreviDent 5000 Enamel Protect) sucralfate 1 gram tablet 1 g PO AC & HS #90 tabs 06/27/24 06/27/24 tamsulosin 0.4 mg capsule 0.8 mg (2 x 0.4 mg) PO DAILY #90 06/27/24 06/27/24 caps Previous Rx's ?Medication ?Instructions ?Recorded sucralfate 1 gram tablet 1 g PO AC & HS #90 tabs 06/27/24 tamsulosin 0.4 mg capsule 0.8 mg (2 x 0.4 mg) PO DAILY #90 06/27/24 caps Allergies Allergy/AdvReac Type Severity Reaction Status Date / Time No Known Allergies Allergy Verified 06/27/24 13:01 General BERRY: 4 Medical Decision Making Quality:SDOH Health Related Social Needs: No Data to Display PFSH All Active Problems (Updated 06/27/24 @ 12:57 by José Manuel Godinez MD) Near syncope (Acute) Prolonged QT interval (Acute) Contracture of left index finger (Acute) Peptic anastomotic ulcer (Acute) History of DVT (deep vein thrombosis) (Acute) Elevated MCV (Acute) Hypomagnesemia (Acute) Elevated BUN (Acute) GIB (gastrointestinal bleeding) (Chronic) Tachycardia (Acute) Acute blood loss anemia (ABLA) (Acute) Symptomatic anemia (Acute) Surgical History (Updated 06/26/24 @ 11:30 by Gwen Hong) History of esophagogastroduodenoscopy (EGD) (~06/2024) Social History Smoking/Tobacco Use Status: Never Smoking risk assessment performed?: Yes Alcohol Intake: current Substance use type: does not use Housing: other
[2024-06-27] MEDS: Pantoprazole 40 MG VIAL 80 MG IVP (12:48)
[2024-06-27 12:53] LABS: Abs Immature Grans 0.09 10^3/uL (0.0-0.06); Absolute Basophil Count 0.09 10^3/uL (0.0-0.2); Absolute Eosinophil Count 0.23 10^3/uL (0.0-0.7); Absolute Monocyte Count 1.15 10^3/uL (0.1-0.8); Absolute Neutrophil Count 12.12 10^3/uL (1.2-6.7); Basophils % 0.6 %; Eosinophils % 1.5 %; HCT 26.7 % (40.0-50.0); HGB 9.2 g/dL (13.5-17.5); Immature Grans % 0.6 %; Lymphocytes % 10.9 %; MCH 31.8 pg (27.0-33.0); MCHC 34.5 % (32.0-36.0); MCV 92 fL (80-95); MPV 10.5 fL (8.0-11.0); Monocytes % 7.5 %; Neutrophils % 78.9 %; Platelet Count 472 10^3/uL (130-400); RBC 2.89 10^6/uL (4.36-5.78); RDW 15.6 % (11.8-14.1); RDW-SD 50.7 fL; WBC 15.36 10^3/uL (4.4-10.8)
[2024-06-27 12:55] LABS: Absolute Lymphocyte Count 1.67 10^3/uL (1.2-3.4)
[2024-06-27 13:05] LABS: Anion Gap 11.1 mmol/L (3-11); BUN 13 mg/dL (7-18); CO2 20.9 mmol/L (21.0-32.0); CREATININE 1.6 mg/dL (0.70-1.30); Calcium 8.5 mg/dL (8.5-10.1); Chloride 109 mmol/L (98-107); Estimated GFR 45.21 (mL/min/1.73m2); Glucose 98 mg/dL (74-106); Potassium 3.7 mmol/L (3.5-5.1); Sodium 141 mmol/L (136-145)
[2024-06-27 13:13] LABS: Troponin I 20 ng/L (<or=76)
[2024-06-27 13:17] LABS: Magnesium 1.8 mg/dL (1.8-2.4)
[2024-06-27] MEDS: Normal Saline 500 ML 1000 ML IV (14:04)
[2024-06-27 14:47] LABS: Troponin I 27 ng/L (<or=76)
[2024-06-27 15:33] LABS: HCT 26.7 % (40.0-50.0); HGB 9.1 g/dL (13.5-17.5)
--- NOTE | 2024-06-27 16:02 | ED.PROG_ITS ---
Date of service: 06/27/24 Time of Service: 16:02 Medical Decision Making Laboratory Tests Patient was ultimately hospitalized at [facility]. Range/Units 06/27/24 06/27/24 06/27/24 12:27 12:37 13:50 WBC (4.4-10.8) 10^3/uL 15.36 H RBC (4.36-5.78) 10^6/uL 2.89 L Hgb (13.5-17.5) g/dL 9.2 L Hct (40.0-50.0) % 26.7 L MCV (80-95) fL 92 MCH (27.0-33.0) pg 31.8 MCHC (32.0-36.0) % 34.5 RDW (11.8-14.1) % 15.6 H Plt Count (130-400) 10^3/uL 472 H MPV (8.0-11.0) fL 10.5 Immature Gran % % 0.6 Neutrophils % % 78.9 Lymphocytes % % 10.9 Monocytes % % 7.5 Eosinophils % % 1.5 Basophils % % 0.6 Nucleated RBC % (0.0-0.3) % 0.0 Absolute Neutrophils (1.2-6.7) 10^3/uL 12.12 H Absolute Lymphocytes (1.2-3.4) 10^3/uL 1.67 Absolute Monocytes (0.1-0.8) 10^3/uL 1.15 H Absolute Eosinophils (0.0-0.7) 10^3/uL 0.23 Absolute Basophils (0.0-0.2) 10^3/uL 0.09 Sodium (136-145) mmol/L 141 Potassium (3.5-5.1) mmol/L 3.7 Chloride (98-107) mmol/L 109 H Carbon Dioxide (21.0-32.0) mmol/L 20.9 L Anion Gap (3-11) mmol/L 11.1 H BUN (7-18) mg/dL 13 Creatinine (0.70-1.30) mg/dL 1.6 H Est GFR (CKD-EPI 2020) (mL/min/1.73m2) 45.21 Glucose (74-106) mg/dL 98 Calcium (8.5-10.1) mg/dL 8.5 Magnesium (1.8-2.4) mg/dL 1.8 Troponin I (<or=76) ng/L 20 ABO/Rh O Positive Antibody Screen NEGATIVE Range/Units 06/27/24 06/27/24 15:27 15:28 WBC (4.4-10.8) 10^3/uL RBC (4.36-5.78) 10^6/uL Hgb (13.5-17.5) g/dL 9.1 L Hct (40.0-50.0) % 26.7 L MCV (80-95) fL MCH (27.0-33.0) pg MCHC (32.0-36.0) % RDW (11.8-14.1) % Plt Count (130-400) 10^3/uL MPV (8.0-11.0) fL Immature Gran % % Neutrophils % % Lymphocytes % % Monocytes % % Eosinophils % % Basophils % % Nucleated RBC % (0.0-0.3) % Absolute Neutrophils (1.2-6.7) 10^3/uL Absolute Lymphocytes (1.2-3.4) 10^3/uL Absolute Monocytes (0.1-0.8) 10^3/uL Absolute Eosinophils (0.0-0.7) 10^3/uL Absolute Basophils (0.0-0.2) 10^3/uL Sodium (136-145) mmol/L Potassium (3.5-5.1) mmol/L Chloride (98-107) mmol/L Carbon Dioxide (21.0-32.0) mmol/L Anion Gap (3-11) mmol/L BUN (7-18) mg/dL Creatinine (0.70-1.30) mg/dL Est GFR (CKD-EPI 2020) (mL/min/1.73m2) Glucose (74-106) mg/dL Calcium (8.5-10.1) mg/dL Magnesium (1.8-2.4) mg/dL Troponin I (<or=76) ng/L Cancelled ABO/Rh Antibody Screen Vital Signs Temperature 37.4 C 06/27/24 12:24 Temperature Source Oral 06/27/24 12:24 Pulse 112 H 06/27/24 15:50 Pulse 112 H 06/27/24 15:50 Respiratory Rate 12 06/27/24 15:50 Respiratory Effort Normal, Non-Labored 06/27/24 12:40 Respiratory Depth Normal 06/27/24 12:40 Respiratory Pattern Normal 06/27/24 12:40 Blood Pressure 131/64 06/27/24 15:46 Blood Pressure Mean 84 06/27/24 15:46 Blood Pressure Position Supine 06/27/24 12:24 Pulse Oximetry 95 06/27/24 15:50 Oxygen Delivery Method Room Air 06/27/24 12:24 Oxygen Flow Rate 0 06/27/24 12:24 Pain Level 0 06/27/24 12:24 Intake & Output 06/26/24 06/27/24 06/27/24 23:59 11:59 23:59 Intake Total 510 / 510 Balance 510 / 510 Weight 103 kg Intake: IV 510 / 510 Quality:SDOH Health Related Social Needs: No Data to Display Discharge Plan Disposition Patient Disposition: Admit to [facility] Discharge Details Chief Complaint: Dizzy/Sync Clinical Impression: Prolonged QT interval, Near syncope, Symptomatic anemia Primary Care Provider: Chrissy Holguin ED Provider: José Manuel Godinez Orland Meds and New Rx's Prescriptions: No Action sucralfate 1 gram Tablet 1 g PO AC & HS Qty: 90 0RF tamsulosin 0.4 mg Capsule 0.8 mg PO DAILY Qty: 90 0RF metformin 1,000 mg Tablet 500 mg PO BID acetaminophen 500 mg Tablet 500 mg PO BID lisinopril 10 mg Tablet 10 mg PO DAILY escitalopram oxalate 20 mg Tablet 20 mg PO DAILY dulaglutide 1.5 mg/0.5 mL Pen Injector 1.5 mg SUBCUT DIRECTED Rx Instructions: Q sodium fluoride-pot nitrate [PreviDent 5000 Enamel Protect] 1.1-5 % paste 1 applic dental BID Rx Instructions: brush teeth using soft brush for at least 1 min ; rinse mouth thoroughly and spit out
--- NOTE | 2024-06-27 16:06 | W.PM.HP.N ---
Date of service: 06/27/24 Time of Service: 16:06 Assessment and Plan Assessment and plan (1) Orthostasis: Status: Acute Assessment and plan: - Prior to discharge earlier in the morning of 06/27/2024 patient was able to stand up and ambulate without any lightheadedness or dizziness - However, upon returning back to group home facility he had sudden onset of lightheadedness and dizziness with reported systolic blood pressure in the 80s that improved upon laying down - In the emergency department upon arrival patient was noted as having orthostasis, though this persisted after 2 L of normal saline - Will continue normal saline at 100 mL an hour, and recheck orthostatics in the morning (2) Tachycardia: Status: Acute Assessment and plan: - Presumed secondary to orthostasis as noted above (3) GIB (gastrointestinal bleeding): Status: Chronic Assessment and plan: - Reason for admission during previous hospitalization - EGD showed peptic ulcer disease without active bleed - During previous hospitalization received PRBCs with improvement of his hemoglobin - Hemoglobin on readmission 9.1, will follow-up a.m. hemoglobin (4) History of DVT (deep vein thrombosis): Status: Acute Assessment and plan: scd currently 2/2 concern for bleeding. History of Present Illness History of Present Illness Chief Complaint: near syncope Narrative: 73-year-old male currently incarcerated who was just hospitalized at [facility] and discharged earlier in the morning on 06/27/2024 who presented back to the emergency department after syncopal episode. Patient states that he was doing well prior to discharge including being able to ambulate, but upon returning back to present facility he stood up and had sudden lightheadedness and dizziness and had near syncopal episode. Reportedly while at facility he was noted as having systolic blood pressure of 80 that improved once he was laid down with systolics in the 1 teens. Of note, the patient also stated that he had a dark bowel movement this morning prior to discharge. In the emergency department the patient was noticed having a normal exam, normal vital signs with the exception of some tachycardia with heart rates in the 110's. CBC was notable for an improved hemoglobin up to 9.1, with remainder CBC and CMP unremarkable. For GI bleed and orthostatics were checked, he was noted as having orthostatic hypotension for which she received 2 L of normal saline. However, the patient was persistently tachycardic. Given patient's recent hospitalization syncopal episode, emergency room physician paged hospitalist for admission for patient with orthostatic hypotension. 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 ulcer (Acute) History of DVT (deep vein thrombosis) (Acute) Elevated MCV (Acute) Hypomagnesemia (Acute) Elevated BUN (Acute) GIB (gastrointestinal bleeding) (Chronic) Tachycardia (Acute) Acute blood loss anemia (ABLA) (Acute) Symptomatic anemia (Acute) Surgical History (Updated 06/26/24 @ 11:30 by Gwen Hong) History of esophagogastroduodenoscopy (EGD) (~06/2024) Social History Smoking/Tobacco Use Status: Never Smoking risk assessment performed?: Yes Alcohol Intake: current Substance use type: does not use Housing: other Meds Allergies and Home Medications Allergies Allergy/AdvReac Type Severity Reaction Status Date / Time No Known Allergies Allergy Verified 06/27/24 13:01 Home Medications ?Medication ?Instructions ?Recorded ?Confirmed ?Type acetaminophen 500 mg tablet 500 mg PO BID 07/13/21 06/27/24 History dulaglutide 1.5 mg/0.5 mL 1.5 mg subcut DIRECTED 07/13/21 06/27/24 History subcutaneous pen injector escitalopram oxalate 20 mg tablet 20 mg PO DAILY 07/13/21 06/27/24 History lisinopril 10 mg tablet 10 mg PO DAILY 07/13/21 06/27/24 History metformin 1,000 mg tablet 500 mg PO BID 07/13/21 06/27/24 History sodium fluoride 1.1 %-potassium 1 applic dental BID 06/27/24 06/27/24 History nitrate 5 % dental paste (PreviDent 5000 Enamel Protect) sucralfate 1 gram tablet 1 g PO AC & HS #90 tabs 06/27/24 06/27/24 Rx tamsulosin 0.4 mg capsule 0.8 mg (2 x 0.4 mg) PO DAILY #90 06/27/24 06/27/24 Rx caps Exam Narrative Exam Narrative: well appearing older gentleman laying in bed in no acute distress, AOx4, heart RRR, lungs CTAB, abdomen soft, non-tender, non-distended, left hand with negative phalens and tinnel, no erythema or warmth, mild contracture of first finger Results Labs 06/27/24 15:28 06/27/24 12:37 Labs: Laboratory Results - last 24 hr 06/27/24 06/27/24 06/27/24 12:27 12:37 13:50 WBC 15.36 H RBC 2.89 L Hgb 9.2 L Hct 26.7 L MCV 92 MCH 31.8 MCHC 34.5 RDW 15.6 H Plt Count 472 H MPV 10.5 Immature Gran % 0.6 Neutrophils % 78.9 Lymphocytes % 10.9 Monocytes % 7.5 Eosinophils % 1.5 Basophils % 0.6 Nucleated RBC % 0.0 Absolute Neutrophils 12.12 H Absolute Lymphocytes 1.67 Absolute Monocytes 1.15 H Absolute Eosinophils 0.23 Absolute Basophils 0.09 Sodium 141 Potassium 3.7 Chloride 109 H Carbon Dioxide 20.9 L Anion Gap 11.1 H BUN 13 Creatinine 1.6 H Est GFR (CKD-EPI 2020) 45.21 Glucose 98 Calcium 8.5 Magnesium 1.8 Troponin I 20 27 ABO/Rh O Positive Antibody Screen NEGATIVE 06/27/24 06/27/24 15:27 15:28 WBC RBC Hgb 9.1 L Hct 26.7 L MCV MCH MCHC RDW Plt Count MPV Immature Gran % Neutrophils % Lymphocytes % Monocytes % Eosinophils % Basophils % Nucleated RBC % Absolute Neutrophils Absolute Lymphocytes Absolute Monocytes Absolute Eosinophils Absolute Basophils Sodium Potassium Chloride Carbon Dioxide Anion Gap BUN Creatinine Est GFR (CKD-EPI 2020) Glucose Calcium Magnesium Troponin I Cancelled ABO/Rh Antibody Screen Last Vital Signs Temp 99.4 F 06/27/24 12:24 Pulse 112 H 06/27/24 15:50 Resp 12 06/27/24 15:50 BP 131/64 06/27/24 15:46 Pulse Ox 95 06/27/24 15:50 Time Spent Time spent with Patient: >75 minutes Time was spent: preparing to see the patient(eg.review tests), obtaining and/or reviewing separately otained hiistory, ordering medications,tests, procedures, referring, communicating with other health client care coordinator, indepentently interpreting results, counseling the patient and care coordination
--- NOTE | 2024-06-27 16:42 | W.PC.ACHO ---
Registration Status: Primary Language: Preferred Language: ED Information & Data Chief Complaint Dizzy/Sync 06/27/24 15:36 Chief Complaint Dizzy/Sync 06/27/24 12:24 Triage Note Pt arrives via ems, just 06/27/24 12:[address] [facility] for UGIB - had pre-syncopal episode today and was hypotensive/tachy at [facility]. Dizzy/ orthostatic when standing. (Last Updated 06/26/24 @ 11:30 by Gwen Hong) History of esophagogastroduodenoscopy (EGD) (~06/2024) Most Recent Vital Signs Temperature 37.4 C 06/27/24 12:24 Temperature Source Oral 06/27/24 12:24 Pulse 114 H 06/27/24 16:20 Pulse 113 H 06/27/24 16:20 Respiratory Rate 20 06/27/24 16:20 Respiratory Effort Normal, Non-Labored 06/27/24 12:40 Respiratory Depth Normal 06/27/24 12:40 Respiratory Pattern Normal 06/27/24 12:40 Blood Pressure 122/69 06/27/24 16:15 Blood Pressure Mean 84 06/27/24 16:15 Blood Pressure Position Supine 06/27/24 12:24 Pulse Oximetry 94 06/27/24 16:20 Oxygen Delivery Method Room Air 06/27/24 12:24 Oxygen Flow Rate 0 06/27/24 12:24 Pain Level 0 06/27/24 12:24 Allergies No Known Allergies Allergy (Verified 06/27/24 13:01) Precautions Isolation Standard precaution 06/27/24 15:36 IV IV Catheter Type [Left Peripheral IV Antecubital] IV Catheter Gauge [Left 18 Antecubital] Diet Orders Category Date Time Status Regular/Normal [DIET] Nutrition 06/27/24 Dinner Active Diagnostics 06/27/24 06/27/24 06/27/24 Range/Units 15:28 15:27 13:50 WBC (4.4-10.8) 10^3/uL RBC (4.36-5.78) 10^6/uL Hgb 9.1 L (13.5-17.5) g/dL Hct 26.7 L (40.0-50.0) % MCV (80-95) fL MCH (27.0-33.0) pg MCHC (32.0-36.0) % RDW (11.8-14.1) % Plt Count (130-400) 10^3/uL MPV (8.0-11.0) fL Immature Gran % % Neutrophils % % Lymphocytes % % Monocytes % % Eosinophils % % Basophils % % Nucleated RBC % (0.0-0.3) % Absolute Neutrophils (1.2-6.7) 10^3/uL Absolute Lymphocytes (1.2-3.4) 10^3/uL Absolute Monocytes (0.1-0.8) 10^3/uL Absolute Eosinophils (0.0-0.7) 10^3/uL Absolute Basophils (0.0-0.2) 10^3/uL Sodium (136-145) mmol/L Potassium (3.5-5.1) mmol/L Chloride (98-107) mmol/L Carbon Dioxide (21.0-32.0) mmol/L Anion Gap (3-11) mmol/L BUN (7-18) mg/dL Creatinine (0.70-1.30) mg/dL Est GFR (CKD-EPI 2020) (mL/min/1.73m2) Glucose (74-106) mg/dL Calcium (8.5-10.1) mg/dL Magnesium (1.8-2.4) mg/dL Troponin I Cancelled 27 (<or=76) ng/L ABO/Rh Antibody Screen 06/27/24 06/27/24 Range/Units 12:37 12:27 WBC 15.36 H (4.4-10.8) 10^3/uL RBC 2.89 L (4.36-5.78) 10^6/uL Hgb 9.2 L (13.5-17.5) g/dL Hct 26.7 L (40.0-50.0) % MCV 92 (80-95) fL MCH 31.8 (27.0-33.0) pg MCHC 34.5 (32.0-36.0) % RDW 15.6 H (11.8-14.1) % Plt Count 472 H (130-400) 10^3/uL MPV 10.5 (8.0-11.0) fL Immature Gran % 0.6 % Neutrophils % 78.9 % Lymphocytes % 10.9 % Monocytes % 7.5 % Eosinophils % 1.5 % Basophils % 0.6 % Nucleated RBC % 0.0 (0.0-0.3) % Absolute Neutrophils 12.12 H (1.2-6.7) 10^3/uL Absolute Lymphocytes 1.67 (1.2-3.4) 10^3/uL Absolute Monocytes 1.15 H (0.1-0.8) 10^3/uL Absolute Eosinophils 0.23 (0.0-0.7) 10^3/uL Absolute Basophils 0.09 (0.0-0.2) 10^3/uL Sodium 141 (136-145) mmol/L Potassium 3.7 (3.5-5.1) mmol/L Chloride 109 H (98-107) mmol/L Carbon Dioxide 20.9 L (21.0-32.0) mmol/L Anion Gap 11.1 H (3-11) mmol/L BUN 13 (7-18) mg/dL Creatinine 1.6 H (0.70-1.30) mg/dL Est GFR (CKD-EPI 2020) 45.21 (mL/min/1.73m2) Glucose 98 (74-106) mg/dL Calcium 8.5 (8.5-10.1) mg/dL Magnesium 1.8 (1.8-2.4) mg/dL Troponin I 20 (<or=76) ng/L ABO/Rh O Positive Antibody Screen NEGATIVE Intake and Output - 24 Hour Total 06/27/24 12:14 thru 06/27/24 14:34 Intake Total 510 Balance 510 Weight 103 kg Intake: IV 510 Falls Risk Assessment History of Falls No History 06/27/24 12:38 Contributing Factors Unstable 06/27/24 12:38 Ambulatory Aids Independent 06/27/24 12:38 Tubes/Lines None 06/27/24 12:38 Gait Evaluation No gait disturbance 06/27/24 12:38 Cognition No cognitive impairment 06/27/24 12:38 Fall Total Score 3 06/27/24 12:38 Level of Risk Standard/Low Risk 06/27/24 12:38 Problems (Last Reviewed 07/13/21 @ 15:24 by Mehdi Melendez MD) Orthostasis (Acute) Near syncope (Acute) Prolonged QT interval (Acute) History of DVT (deep vein thrombosis) (Acute) GIB (gastrointestinal bleeding) (Chronic) Tachycardia (Acute) v v v v v v v v v Sending and/or Receiving Nurses: Please use comment section below to note any information pertinent to the patient hand-off not included above. Information / Comments: Report received from: rosaura
[2024-06-27] MEDS: Sucralfate 1 GM TAB PO ×2 (17:30→22:44)
[2024-06-27] MEDS: Normal Saline 1,000 ML 100 ML IV (17:41)
[2024-06-27] MEDS: Normal Saline Flush 10 ML SYR IVP (20:21)
[2024-06-27] MEDS: Pantoprazole 40 MG TABCR PO (20:21)
[2024-06-28] VITALS (8 sets, daily range): BP systolic 91–118; BP diastolic 58–70; PULSE 86–136; RESP 16–20; TEMP 36.8–37.3; O2SAT 95–98
[2024-06-28] MEDS: Normal Saline 1,000 ML 100 ML IV (04:35)
[2024-06-28 07:03] LABS: HCT 22.4 % (40.0-50.0); HGB 7.4 g/dL (13.5-17.5); MCH 30.6 pg (27.0-33.0); MCV 93 fL (80-95); MPV 10.8 fL (8.0-11.0); Platelet Count 414 10^3/uL (130-400); RBC 2.42 10^6/uL (4.36-5.78); RDW-SD 51.5 fL; WBC 14.34 10^3/uL (4.4-10.8)
[2024-06-28 07:19] LABS: Anion Gap 11.1 mmol/L (3-11); BUN 13 mg/dL (7-18); CO2 21.9 mmol/L (21.0-32.0); CREATININE 1.4 mg/dL (0.70-1.30); Calcium 8.2 mg/dL (8.5-10.1); Chloride 110 mmol/L (98-107); Estimated GFR 53.07 (mL/min/1.73m2); Glucose 96 mg/dL (74-106); Magnesium 1.6 mg/dL (1.8-2.4); Potassium 3.5 mmol/L (3.5-5.1); Sodium 143 mmol/L (136-145)
--- NOTE | 2024-06-28 08:46 | PDOC.CMIN ---
Date of service: 06/28/24 Time of Service: 08:46 Care Management Initial Assmt Initial Assessment Reason for Hospitalization: orthostatic hypotension Functional Status/Living Situation Patient Presentation: José Manuel was discharged back to the [facility] yesterday after a brief hospital stay for a GI Bleed. When he returned to the facility he became lightheaded and was found to be hypotensive. He was transferred back to the hospital and was readmitted with hypotension. José Manuel has continued to be tachycardic and is still experiencing some light headedness with ambulation. Testing did not indicate that José Manuel had orthostatic hypotension however his H&H dropped from 26.7/9.1 to 22.4/7.4. No active bleeding has been noted. Town of Residence: [facility] Resides with: Other ([facility]) Employment Status: Unemployed Instrumental Activities of Daily Living (ADLs): Independent Medications Medication Management: No Issues/Barriers identified Advance Directives Advance Directives: Do you have an Advance Directive: N 06/24/24 11:54 AD On File at [facility]: N 06/24/24 11:54 Date Asked 06/24/24 06/24/24 11:54 AD Date Reviewed COLST On File at [facility] COLST Date Scanned Code Status Resuscitation Status Full Code Portal Pt does not currently have a portal and education provided: Yes Insurance Coverage/Financial Issues Insurance: [place] [facility] Care Team Visit Care Team Role Provider Type Chrissy Holguin Primary Care Provider NURSE PRACTITIONER José Manuel Godinez MD Emergency Provider [facility] STAFF PHYSICIAN Jono Connell MD Admit Provider [facility] STAFF PHYSICIAN Attending Provider Discharge Potential Discharge Needs: Other (return to [facility]) Anticipated Barriers to Discharge: None Identified Patient/Family Education Needs: Review discharge instructions, discuss Ask Me Three Transportation: Facility Transport Plan: Anticipate José Manuel will be discharged back to [facility] when medically cleared. He will follow up with his facility provider and plan of care and transport with corrections staff. CM will follow. Social Determinants of Health Screening Will the Patient Participate in the Screening?: Unable to obtain Comments: pt came from half-way [facility] All Active Problems (Updated 06/28/24 @ 00:04 by EVELYNE ADAMS) Orthostasis (Acute) Symptomatic anemia (Acute) Near syncope (Acute) Prolonged QT interval (Acute) Contracture of left index finger (Acute) Peptic anastomotic ulcer (Acute) Elevated MCV (Acute) Surgical History (Updated 06/26/24 @ 11:30 by Gwen Hong) History of esophagogastroduodenoscopy (EGD) (~06/2024) Social History Smoking/Tobacco Use Status: Never Smoking risk assessment performed?: Yes Alcohol Intake: current Substance use type: does not use Housing: other
[2024-06-28] MEDS: Sucralfate 1 GM TAB PO ×4 (09:33→21:27)
[2024-06-28] MEDS: Escitalopram 20 MG TAB PO (09:33)
[2024-06-28] MEDS: Tamsulosin 0.4 MG CAPCR 0.8 MG PO (09:33)
[2024-06-28] MEDS: metFORMIN 500 MG TAB PO ×2 (09:33→16:54)
[2024-06-28] MEDS: Pantoprazole 40 MG TABCR PO ×2 (09:33→19:40)
[2024-06-28] MEDS: Normal Saline Flush 10 ML SYR IVP ×4 (09:33→19:37)
--- NOTE | 2024-06-28 11:09 | PGE_ITS ---
Date of Service Date of service: 06/28/24 Time of Service: 11:10 Assessment and Plan Assessment and plan (1) Orthostasis: Status: Acute Assessment and plan: - Prior to discharge earlier in the morning of 06/27/2024 patient was able to stand up and ambulate without any lightheadedness or dizziness - However, upon returning back to senior living facility he had sudden onset of lighthe adedness and dizziness with reported systolic blood pressure in the 80s that improved upon laying down - In the emergency department upon arrival patient was noted as having orthostasis, though this persisted after 2 L of normal saline - Was on 100 mL/hr normal saline overnight - Orthostatic negative on the morning of 06/28/2024, but patient was tachycardic during ambulation - Ordered 1 L normal saline bolus and encouraged increased p.o. intake - Will again ambulate patient later in the afternoon again tomorrow morning this assessment prior to discharge (2) Tachycardia: Status: Resolved Assessment and plan: - Presumed secondary to orthostasis as noted above (3) GIB (gastrointestinal bleeding): Status: Resolved Assessment and plan: - Reason for admission during previous hospitalization - EGD showed peptic ulcer disease without active bleed - During previous hospitalization received PRBCs with improvement of his hemoglobin - Hemoglobin on readmission 9.1, will follow-up a.m. hemoglobin (4) History of DVT (deep vein thrombosis): Status: Resolved Assessment and plan: scd currently 2/2 concern for bleeding. Subjective Subjective Interval history since last seen: Patient states that he is feels a little better as compared to yesterday, but when walking he did not feel lightheaded or dizzy but had what he described as chest pain but upon further questioning was more so exertional tachycardia. Exam Narrative Exam Narrative: well appearing older gentleman laying in bed in no acute distress, AOx4, heart rate tachycardic in the 120s, regular rhythm, lungs CTAB, abdomen soft, non- tender, non-distended, left hand with negative phalens and tinnel, no erythema or warmth, mild contracture of first finger Objective Last Vital Signs Temp 99.1 F 06/28/24 09:10 Pulse 118 H 06/28/24 09:19 Resp 22 06/27/24 23:45 BP 105/64 06/28/24 09:19 Pulse Ox 95 06/28/24 09:10 Laboratory Results - last 24 hr 06/27/24 06/27/24 06/27/24 12:27 12:37 13:50 WBC 15.36 H RBC 2.89 L Hgb 9.2 L Hct 26.7 L MCV 92 MCH 31.8 MCHC 34.5 RDW 15.6 H Plt Count 472 H MPV 10.5 Immature Gran % 0.6 Neutrophils % 78.9 Lymphocytes % 10.9 Monocytes % 7.5 Eosinophils % 1.5 Basophils % 0.6 Nucleated RBC % 0.0 Absolute Neutrophils 12.12 H Absolute Lymphocytes 1.67 Absolute Monocytes 1.15 H Absolute Eosinophils 0.23 Absolute Basophils 0.09 Sodium 141 Potassium 3.7 Chloride 109 H Carbon Dioxide 20.9 L Anion Gap 11.1 H BUN 13 Creatinine 1.6 H Est GFR (CKD-EPI 2020) 45.21 Glucose 98 Calcium 8.5 Magnesium 1.8 Troponin I 20 27 ABO/Rh O Positive Antibody Screen NEGATIVE 06/27/24 06/27/24 06/28/24 15:27 15:28 05:50 WBC 14.34 H RBC 2.42 L Hgb 9.1 L 7.4 L Hct 26.7 L 22.4 L MCV 93 MCH 30.6 MCHC 33.0 RDW 16.0 H Plt Count 414 H MPV 10.8 Immature Gran % Neutrophils % Lymphocytes % Monocytes % Eosinophils % Basophils % Nucleated RBC % Absolute Neutrophils Absolute Lymphocytes Absolute Monocytes Absolute Eosinophils Absolute Basophils Sodium 143 Potassium 3.5 Chloride 110 H Carbon Dioxide 21.9 Anion Gap 11.1 H BUN 13 Creatinine 1.4 H Est GFR (CKD-EPI 2020) 53.07 Glucose 96 Calcium 8.2 L Magnesium 1.6 L Troponin I Cancelled ABO/Rh Antibody Screen Time Spent with Patient Time Spent with Patient: >50 minutes Time was spent: preparing to see the patient(eg.review tests), obtaining and/or reviewing separately otained hiistory, ordering medications,tests, procedures, referring, communicating with other health medicare sales representative, indepentently interpreting results, counseling the patient and care coordination
[2024-06-28] MEDS: Normal Saline 1,000 ML 1000 ML IV (11:31)
[2024-06-28] MEDS: Acetaminophen 325 MG TAB PO (16:00)
--- NOTE | 2024-06-28 16:25 | PHA.REVIEW2 ---
Pharmacy Admission Review Admission Clinical Review Admission Pharmacy Review: Orthostasis (Acute) Near syncope (Acute) Prolonged QT interval (Acute) No Known Allergies Allergy (Verified 06/27/24 13:01) Resuscitation Status Full Code Height 5 ft 9 in Weight 103 kg Comments Comments/Follow Ups: Watch BP, HR, SCr, H/H, mag, labs and for med changes (possible renal dose adjustments, avoid QT prolonging medication). Pharmacy Admission Review Renal Dosing Renal Dosing: BUN 13 mg/dL (7-18) 06/28/24 05:50 Creatinine 1.4 mg/dL (0.70-1.30) H 06/28/24 05:50 Medications needing adjustments: Reviewed (Crcl ~55.5 mL/min current meds are okay) Anticoagulation Anticoagulation: Hgb 7.4 g/dL (13.5-17.5) L 06/28/24 05:50 Hct 22.4 % (40.0-50.0) L 06/28/24 05:50 Plt Count 414 10^3/uL (130-400) H 06/28/24 05:50 Creatinine 1.4 mg/dL (0.70-1.30) H 06/28/24 05:50 DVT Prophylaxis: Reviewed (no chemical prophylaxis due to GI bleed on previous admission per H&P) Opiate Usage Evaluate Pain Scale/Pains Meds: N/A Relevant Labs Relevant Labs: Sodium 143 mmol/L (136-145) 06/28/24 05:50 Potassium 3.5 mmol/L (3.5-5.1) 06/28/24 05:50 Chloride 110 mmol/L (98-107) H 06/28/24 05:50 Magnesium 1.6 mg/dL (1.8-2.4) L 06/28/24 05:50 Electrolytes, C-Reactive P, ESR: Intervened (Will ask provider about possible mag replacement) DM Control DM Control: Glucose 96 mg/dL (74-106) 06/28/24 05:50 DM Control: Reviewed (has metformin and dulaglutide ordered) Cardiac Review Cardiac Review: Troponin I Cancelled 06/27/24 15:27 BP, HR, EF%: Reviewed (BP has been low to normal and HR has been normal to high so far this admission) QTc Review QTc: Reviewed (QTc 503 on EKG from admission) IV to PO Switch IV Medications: Reviewed Home Meds Home Med List reviewed: Reviewed Relevent Home Meds Not ordered & why?: lisinopril Current Meds Current Medication Order Review: Intervened (Talked to provider about tamsulosin dosing. Patient was started on this medication last admission at a higher dose, this medication could cause or worsen orthostatic hypotension. Dose was decreased to 0.4 mg.) Comments Comments/Follow Ups: Watch BP, HR, SCr, H/H, mag, labs and for med changes (possible renal dose adjustments, avoid QT prolonging medication).
[2024-06-29 03:37] VITALS: BP 100/62; PULSE 88; RESP 19; TEMP 36.5; O2SAT 95
[2024-06-29 07:41] VITALS: BP 101/61; BP 111/72; BP 112/69; PULSE 102; PULSE 83; PULSE 96; RESP 18; TEMP 37; O2SAT 98
[2024-06-29] MEDS: Sucralfate 1 GM TAB PO ×2 (07:41→11:28)
[2024-06-29] MEDS: Pantoprazole 40 MG TABCR PO (07:41)
[2024-06-29] MEDS: Escitalopram 20 MG TAB PO (07:41)
[2024-06-29] MEDS: Normal Saline Flush 10 ML SYR IVP (07:41)
[2024-06-29] MEDS: metFORMIN 500 MG TAB PO (07:41)
[2024-06-29] MEDS: Tamsulosin 0.4 MG CAPCR PO (07:56)
[2024-06-29 09:45] VITALS: BP 112/73; BP 136/74; PULSE 121; PULSE 125
[2024-06-29 11:08] VITALS: BP 107/66; PULSE 92; RESP 18; TEMP 36.8; O2SAT 96
[2024-06-29] MEDS: Metoprolol 12.5 MG TAB PO (11:28)
[2024-06-29 12:40] VITALS: BP 111/69; PULSE 94
--- NOTE | 2024-06-29 12:55 | W.PM.DS.N ---
Date of service: 06/29/24 Time of Service: 12:55 DS: Diagnosis Discharge Diagnosis (1) Orthostasis: Status: Acute (2) Tachycardia: Status: Resolved (3) GIB (gastrointestinal bleeding): Status: Resolved (4) History of DVT (deep vein thrombosis): Status: Resolved Discharge Plan Disposition Patient Disposition: [facility] Condition: Good Discharge Details Reason For Visit: Orthostatic hypotension Admit Date/Time: 06/27/24 16:06 Admit Provider: Jono Connell Attending Provider: Jono Connell Primary Care Provider: Chrissy Holguin Hospital Course Hospital Course: Patient presented back to the hospital with near syncope secondary to orthostatic hypotension which improved with IV fluids. Additionally, the patient also experienced palpitations and tachycardia with ambulation. He was started on 12.5mg PO lopressor and his ambulatory tachycardia resolved and he did not experience palpitations. Given that the patients BPs were improved with ambulation and his symptoms resolved it was determined he was stable for discharge. Home Meds and New Rx's Prescriptions: New metoprolol tartrate 25 mg tablet 12.5 mg PO BID Qty: 90 0RF Continued sucralfate 1 gram Tablet 1 g PO AC & HS Qty: 90 0RF tamsulosin 0.4 mg Capsule 0.8 mg PO DAILY Qty: 90 0RF metformin 1,000 mg Tablet 500 mg PO BID acetaminophen 500 mg Tablet 500 mg PO BID lisinopril 10 mg Tablet 10 mg PO DAILY escitalopram oxalate 20 mg Tablet 20 mg PO DAILY dulaglutide 1.5 mg/0.5 mL Pen Injector 1.5 mg SUBCUT DIRECTED Rx Instructions: Q sodium fluoride-pot nitrate [PreviDent 5000 Enamel Protect] 1.1-5 % paste 1 applic dental BID Rx Instructions: brush teeth using soft brush for at least 1 min ; rinse mouth thoroughly and spit out Discharge Instructions Activity:: Activity as Tolerated Equipment/Supplies:: No Equipment Needed Diet:: As Tolerated Discharge Orders Discharge Orders: Discharge Order (Routine); Ordered 06/29/24 Ordered By: Jono Connell DS: Summary Time Spent with Patient providing and/or coordinating discharge services: Greater than 30 minutes Status at Discharge Functional status at discharge: independent ambulation Overall status at discharge: patient is back to baseline Mental Status: mental status grossly normal Speech and Movement: speech and movement normal Mood: congruent mood Affect: normal affect Quality:SDOH Health Related Social Needs: No Data to Display Exam Narrative Exam Narrative: well appearing older gentleman laying in bed in no acute distress, AOx4, heart RRR, regular rhythm, lungs CTAB, abdomen soft, non-tender, non-distended, left hand with negative phalens and tinnel, no erythema or warmth, mild contracture of first finger Psych Mental Status: mental status grossly normal Speech and Movement: speech and movement normal Mood: congruent mood Affect: normal affect DS: Data Vitals/I&O Vitals and I&O: Vital Signs Temperature 98.2 F 06/29/24 11:08 Temperature Source Temporal Artery Scan 06/29/24 11:08 Pulse 94 H 06/29/24 12:40 Pulse Rhythm Regular 06/27/24 17:32 Pulse 113 H 06/27/24 16:20 Respiratory Rate 18 06/29/24 11:08 Respiratory Effort Normal 06/27/24 17:32 Respiratory Depth Normal 06/27/24 17:32 Respiratory Pattern Normal 06/27/24 17:32 Blood Pressure 111/69 06/29/24 12:40 Blood Pressure Mean 83 06/29/24 12:40 Blood Pressure Position Supine 06/27/24 12:24 Pulse Oximetry 96 06/29/24 11:08 Oxygen Delivery Method Room Air 06/29/24 11:08 Oxygen Flow Rate 0 06/29/24 11:08 Pain Level 0 06/29/24 07:41 Comment During the walk highest HR was 120, no symptoms. 06/29/24 12:40 Intake & Output 06/28/24 06/29/24 06/29/24 17:59 05:59 17:59 Intake Total 2480 / 2480 430 / 2910 250 / 250 Balance 2480 / 2480 430 / 2910 250 / 250 Intake: IV 1999 Oral 480 / 480 420 / 900 250 / 250 Other: Urine Odor Normal Stool Characteristics Soft Soft Brown PFSH All Active Problems (Updated 06/28/24 @ 00:04 by EVELYNE ADAMS) Orthostasis (Acute) Symptomatic anemia (Acute) Near syncope (Acute) Prolonged QT interval (Acute) Contracture of left index finger (Acute) Peptic anastomotic ulcer (Acute) Elevated MCV (Acute) Surgical History (Updated 06/26/24 @ 11:30 by Gwen Page) History of esophagogastroduodenoscopy (EGD) (~06/2024) Social History Smoking/Tobacco Use Status: Never Smoking risk assessment performed?: Yes Alcohol Intake: current Substance use type: does not use Housing: other Time Spent with Patient Time Spent with Patient: <45 minutes Time was spent: preparing to see the patient(eg.review tests), obtaining and/or reviewing separately otained hiistory, ordering medications,tests, procedures, referring, communicating with other health rn coronary care unit, indepentently interpreting results, counseling the patient and care coordination
== END 2024-06-29 14:11 ==
LOC: ER 16:03 → MS 17:46
PROVIDERS: Admitting Provider Family Medicine; Emergency Provider Emergency Medicine; PCP Nurse Practitioner Adult Health; Responsible Provider Family Medicine; Visit Provider Family Medicine
DX: I95.1 Orthostatic hypotension (principal); K26.4 Chronic or unspecified duodenal ulcer with hemorrhage; D62 Acute posthemorrhagic anemia; R00.0 Tachycardia, unspecified; Z86.718 Personal history of other venous thrombosis and embolism; K91.89 Other postprocedural complications and disorders of digestive system; Z79.899 Other long term (current) drug therapy; D75.89 Other specified diseases of blood and blood-forming organs; E83.42 Hypomagnesemia; R94.31 Abnormal electrocardiogram [ECG] [EKG]
CPT/HCPCS: 00123; 36415; 80048; 85027; 86850; 86900; 86901; 93005; 96360; 96361; 96374; 99285; 83735; 84484; 85014; 85018; 85025; 93010; 99223; 99233; 99239; G0378; J2470; J3490